=== PATIENT | female | born 1955 | race Caucasian/White ===

== ENCOUNTER → 2017-12-16 08:30 | Outpatient (CLI) | payer OTHER, SELFPAY ==
[2017-12-16 12:05] LABS: Absolute Lymphocyte Count 1.69 X10^3/ul (0.83-4.51); Basophil# 0.03 X10^3/uL; Basophil% 0.7 % (0-1); Eosinophil# 0.26 X10^3/uL; Eosinophils% 5.8 % (0-5); Hematocrit 40.3 % (37-47); Hemoglobin 13.1 g/dl (12.0-15.0); Lymphocyte # 1.69 X10^3/ul (4.0); Lymphocyte % 37.7 % (19-41); Mean Corp Hgb Conc 32.5 g/gl (32-36); Mean Corpuscular Hgb 30.8 pg (27.0-32.0); Mean Corpuscular Volume 94.8 fL (81-99); Mean Platelet Vol. 11.9 fl (6.2-12.0); Monocyte# 0.47 X10^3/uL; Monocyte% 10.5 % (0-10); Neutrophil # 2.03 X10^3/uL (2.7-7.7); Neutrophil % 45.3 % (47-70); Platelet Count 255 K/mm3 (150-450); RBC Distribution Width CV 12.6 % (11.6-14.6); RBC Distribution Width SD 42.5 fl (35.1-43.9); Red Blood Count 4.25 M/mm3 (4.2-5.4); White Blood Count 4.5 K/mm3 (4.4-11.0)
[2017-12-16 12:19] LABS: Vitamin D,25 Hydroxy 32.8 ng/mL (29.95-100.01)
[2017-12-16 12:21] LABS: ALB/GLOB Ratio 1.1 RATIO (0.9-2.4); AST(SGOT) 18 U/L (15-37); Alanine Aminotransfer ALT/SGPT 22 U/L (13-56); Albumin, Serum 3.7 g/dL (3.2-5.0); Alkaline Phosphatase 83 U/L (45-117); Anion Gap 7 (5-15); BUN 15 mg/dL (7-18); BUN/Creat Ratio 16.2 RATIO (10-20); Calcium,Total 8.6 mg/dL (8.5-10.1); Chloride 106 mmol/L (98-107); Cholesterol 277 mg/dL (200); Creatinine, Serum 0.93 mg/dL (0.55-1.02); EST Glomerular Filtration Rate 65 mL/min (>60); Est Glom Filt Rate - Afr Amer 79 mL/min (>60); Estradiol < 11.0 pg/mL; Free T3 2.7 pg/mL (2.18-3.98); Globulin 3.4 g/dL (2.2-4.2); Glucose 96 mg/dL (74-106); High Density Lipoprotein 58 mg/dL; Protein, Total 7.1 g/dL (6.4-8.2); Sodium Level 140 mmol/L (136-145); T4 Free Direct 1.13 ng/dL (0.76-1.46); Thyroid Stim Hormone (TSH) 0.53 uIU/mL (0.358-3.74); Triglycerides 140 mg/dL; Very Low Density Lipoprotein 28 mg/dL (5-40)
[2017-12-16 12:25] LABS: POSITIVE COUNT NO; POSITIVE DIFFERENTIAL NO; POSITIVE MORPHOLOGY NO
[2017-12-17 05:09] LABS: DHEA Sulfate 38.1 ug/dL (29.4-220.5)
[2017-12-17 13:20] LABS: Thyroid Peroxidase AB 54 IU/mL (0-34)
== END ==
PROVIDERS: Family Provider Family Medicine; PCP Family Medicine; Visit Provider Preventive Medicine Public Health & General Preventive Medicine
DX: E03.9 Hypothyroidism, unspecified (principal); E34.9 Endocrine disorder, unspecified; E55.9 Vitamin D deficiency, unspecified; N95.1 Menopausal and female climacteric states
CPT/HCPCS: 36415; 80053; 80061; 82306; 82533; 82627; 82670; 84144; 84403; 84439; 84443; 84481; 85025; 86376; 82626

== ENCOUNTER → 2017-12-16 09:12 | Outpatient (CLI) | payer OTHER, SELFPAY ==
--- NOTE | 2017-12-16 09:14 | RAD_ITS ---
STUDY: X-RAY - RIGHT SHOULDER REASON FOR EXAM: Female, 62 years old. Shoulder pain no trauma TECHNIQUE: 4 view(s) of the shoulder. COMPARISON: None. FINDINGS: Normal glenohumeral articulation. Normal acromioclavicular joint. Normal acromion. Normal humeral head and visualized proximal humerus. The soft tissue structures are unremarkable. Normal visualized pulmonary apex. RAD/Shoulder min 2 Views IMPRESSION: Normal x-ray examination of the shoulder. Electronically Signed: Jared Sylvester MD at 17:00 EDT , Service support ,
== END ==
PROVIDERS: Family Provider Family Medicine; PCP Family Medicine; Referring Provider Physician Assistant; Visit Provider Physician Assistant
DX: M25.511 Pain in right shoulder (principal)
CPT/HCPCS: 73030

== ENCOUNTER 2017-12-20 12:55 | Outpatient (RCR) | payer OTHER, SELFPAY | END 2017-12-20 19:00 | disposition home or self-care (01) | LOC: PT 12:55 | PROVIDERS: Family Provider Family Medicine; PCP Family Medicine; Referring Provider Physician Assistant; Visit Provider Physician Assistant | DX: M75.41 Impingement syndrome of right shoulder (principal) ==

== ENCOUNTER → 2019-04-12 | Outpatient (CLI) | payer OTHER, SELFPAY ==
[2019-04-12 12:18] LABS: Absolute Lymphocyte Count 1.97 X10^3/uL (0.83-4.51); Absolute Neutrophil Count 2.4 X10^3/uL (2.0-7.7); Basophil# 0.05 X10^3/uL; Eosinophil# 0.24 X10^3/uL; Eosinophils% 4.6 % (0-5); Hemoglobin 13.5 g/dL (12.0-15.0); Lymphocyte # 1.97 X10^3/ul (4.0); Lymphocyte % 37.7 % (19-41); Mean Corp Hgb Conc 32.1 g/dL (32-36); Mean Corpuscular Hgb 31.4 pg (27.0-32.0); Mean Corpuscular Volume 97.7 fL (81-99); Monocyte# 0.52 X10^3/uL; NRBC Flagged by Analyzer 0 % (0-5); Neutrophil # 2.42 X10^3/uL (2.7-7.7); Neutrophil % 46.3 % (47-70); Platelet Count 232 K/mm3 (150-450); RBC Distribution Width CV 12.4 % (11.6-14.6); RBC Distribution Width SD 44.4 fl (35.1-43.9); White Blood Count 5.2 K/mm3 (4.4-11.0)
[2019-04-12 12:53] LABS: ALB/GLOB Ratio 1.2 RATIO (0.9-2.4); AST(SGOT) 17 U/L (15-37); Alanine Aminotransfer ALT/SGPT 24 U/L (13-56); Albumin, Serum 3.9 g/dL (3.2-5.0); Alkaline Phosphatase 69 U/L (45-117); Anion Gap 4 (5-15); BUN 14 mg/dL (7-18); BUN/Creat Ratio 14.9 RATIO (10-20); Chloride 110 mmol/L (98-107); Cholesterol 268 mg/dL (200); Creatinine, Serum 0.94 mg/dL (0.55-1.02); EST Glomerular Filtration Rate 64 mL/min (>60); Est Glom Filt Rate - Afr Amer 77 mL/min (>60); Globulin 3.2 g/dL (2.2-4.2); Glucose 88 mg/dL (74-106); High Density Lipoprotein 83 mg/dL; Magnesium 2.1 mg/dL (1.6-2.6); Potassium 3.9 mmol/L (3.5-5.1); Protein, Total 7.1 g/dL (6.4-8.2); Sodium Level 142 mmol/L (136-145); T4 Free Direct 1.09 ng/dL (0.76-1.46); Thyroid Stim Hormone (TSH) 0.78 uIU/mL (0.358-3.74); Triglycerides 100 mg/dL; Very Low Density Lipoprotein 20 mg/dL (5-40)
[2019-04-16 20:42] LABS: Fats, Neutral Normal (.); Fats, Total Normal (.)
== END | disposition home or self-care (01) ==
PROVIDERS: PCP Family Medicine; Referring Provider Family Medicine; Visit Provider Family Medicine
DX: E03.9 Hypothyroidism, unspecified (principal); E78.00 Pure hypercholesterolemia, unspecified; R19.7 Diarrhea, unspecified
CPT/HCPCS: 36415; 80053; 80061; 82705; 83630; 83735; 84439; 84443; 85025; 87493; 87506

== ENCOUNTER 2019-04-24 10:09 | Inpatient (IN) | payer OTHER, SELFPAY ==
[2019-04-24] VITALS (12 sets, daily range): BP systolic 93–141; BP diastolic 53–69; PULSE 54–99; RESP 16–20; TEMP 36.6–36.8; O2SAT 96–99; BMI 28.6; BMI 28.5
--- NOTE | 2019-04-24 10:29 | EKG12_ITS ---
Test Reason : CP Blood Pressure : / mmHG Vent. Rate : 123 BPM Atrial Rate : 163 BPM P-R Int : 208 ms QRS Dur : 076 ms QT Int : 342 ms P-R-T Axes : 000 -35 -02 degrees QTc Int : 489 ms Sinus tachycardia with limited SVT Left axis deviation Abnormal ECG No previous ECGs available Confirmed by KENRICK VICTOR ([id number]), videotape editor RODY MCNEAL ([id number]) on 04/25/2019 2:30:06 PM Referred By: YODIT/STANTON Confirmed By:KENRICK VICTOR
--- NOTE | 2019-04-24 10:30 | RAD_ITS ---
STUDY: X-RAY CHEST REASON FOR EXAM: Female, 64 years old. AFIB TECHNIQUE: Single AP portable view of the chest. COMPARISON: None. FINDINGS: EKG electrodes are seen. The lungs are clear and expanded. There is no demonstrated pleural abnormality. Normal size heart. Normal mediastinum and isabell. Normal visualized pulmonary arteries. There is atherosclerotic calcification of the aortic arch with tortuosity. There are mild degenerative changes of the visualized thoracic spine. Normal visualized ribs, clavicles, and shoulders. There is no demonstrated abnormality of the visualized soft tissue structures of the upper abdomen. RAD/Chest 1 View (Portable) IMPRESSION: No acute abnormality is seen. Electronically Signed: Myron Ramachandran, at 10:56 EST , Service support ,
--- NOTE | 2019-04-24 10:36 | ED.RN ---
NO OLD EKG
[2019-04-24 10:42] LABS: Absolute Lymphocyte Count 2.27 X10^3/uL (0.83-4.51); Absolute Neutrophil Count 2.9 X10^3/uL (2.0-7.7); Basophil# 0.04 X10^3/uL; Basophil% 0.7 % (0-1); Eosinophil# 0.19 X10^3/uL; Eosinophils% 3.2 % (0-5); Hematocrit 39.9 % (37-47); Lymphocyte # 2.27 X10^3/ul (4.0); Lymphocyte % 37.8 % (19-41); Mean Corp Hgb Conc 32.6 g/dL (32-36); Mean Corpuscular Hgb 31.6 pg (27.0-32.0); Mean Corpuscular Volume 96.8 fL (81-99); Mean Platelet Vol. 11.5 fl (6.2-12.0); Monocyte# 0.55 X10^3/uL; Monocyte% 9.2 % (0-10); NRBC Flagged by Analyzer 0 % (0-5); Neutrophil # 2.94 X10^3/uL (2.7-7.7); Neutrophil % 48.9 % (47-70); Platelet Count 243 K/mm3 (150-450); RBC Distribution Width CV 12.4 % (11.6-14.6); RBC Distribution Width SD 44.4 fl (35.1-43.9); Red Blood Count 4.12 M/mm3 (4.2-5.4)
[2019-04-24 11:07] LABS: BNP,B-Type NATRIURETIC PEPTIDE 190.6 pg/mL (0-100)
[2019-04-24 11:10] LABS: Anion Gap 6 (5-15); BUN 14 mg/dL (7-18); BUN/Creat Ratio 14.6 RATIO (10-20); Calcium,Total 9.3 mg/dL (8.5-10.1); Chloride 109 mmol/L (98-107); Creatinine, Serum 0.96 mg/dL (0.55-1.02); EST Glomerular Filtration Rate 63 mL/min (>60); Est Glom Filt Rate - Afr Amer 76 mL/min (>60); Estimated Creatinine Clearance 57.57 ml/min; Glucose 96 mg/dL (74-106); Potassium 3.9 mmol/L (3.5-5.1); Sodium Level 143 mmol/L (136-145)
--- NOTE | 2019-04-24 11:21 | ED.RN ---
UP TO BR. TRANSPORTED VIA WC. PT REPORTS HEN STANDING TO [facility] DIDNT FEEL LIGHTHEADED BEFORE.
--- NOTE | 2019-04-24 11:36 | ED.DCSUM_ITS ---
History of Present Illness Chief Complaint: Chest Pain Detail of Chief Complaint: Palpitations, orthostatic symptoms and mild shortness of breath Informant: Patient Onset: Yesterday Context: Sudden Onset Timing: Intermittent Quality: Palpitations/rapid heartbeat with orthostatic symptoms and mild shortness o Location: Chest Current Severity: Presently not having symptoms Maximum Severity: Moderate Worsened by: Possibly exertion Relieved by: Nothing Associated Symptoms: Previously documented Narrative: Patient is a 64-year-old woman who presents with palpitations. These palpitations started yesterday. The palpitations are associated with lightheadedness. She went to the gym to workout. She states she did not exert herself. She did have episode of palpitation with lightheadedness and mild sweating and shortness of breath. She saw her primary care physician. She was sent to the ER because the EKG revealed bursts of rapid heartbeat followed by pause. Patient denies chest pain. She denies fever, chills night sweats. She had recent blood work including thyroid test that were negative. She denies weight gain or weight loss. She denies leg pain or swelling. She denies history of cardiac disease. Prior similar symptoms: No Recent Illness/Hospitalization: No - Blood work April 12, 2019 - Past Medical History (1) Hypothyroidism Status: Chronic (2) Hypercholesterolemia Status: Chronic Past Medical History - Allergies and Home Meds Allergies/Adverse Reactions: Allergies No Known Allergies Allergy (Verified 04/24/19 10:15) Primary Care Physician: Deon Mera MD [Primary Care Provider] - Prior records reviewed: Yes Lives: With Family Smoking Status: Never smoker Alcohol: None Drugs: None Review of Systems General: Denies: Chills, Fever, Sweats Eyes: Denies: Visual changes - bilaterally, Blurred Vision - bilaterally, Diplopia ENT: Denies: Bilateral ear pain, Rhinorrhea, Sore throat Cardiovascular: Reports: Palpitations, Heart racing Respiratory: Denies: Dyspnea, Cough, Dyspnea on exertion, Orthopnea, Paroxysmal nocturnal dyspnea Gastrointestinal: Denies: Abdominal pain, Nausea, Vomiting, Diarrhea, Melena, Hematochezia Genitourinary: Denies: Dysuria, Hematuria, Frequency Musculoskeletal: Denies: Myalgias, Arthralgias, Neck pain, Back pain, Swelling, Extremity Pain, -, - Skin: Denies: Rash, Wounds Neurological: Denies: Headache, Weakness, Numbness Endocrine: Denies: Polyuria, Polydipsia, Heat intolerance, Cold intolerance Hematologic: Denies: Easy bruising, Easy bleeding Physical Exam Vital Signs/Narrative: Vital Signs Temp Pulse Resp BP Pulse Ox 04/24/19 11:15 99 18 109/69 99 04/24/19 10:51 83 19 H 116/60 98 04/24/19 10:19 93 19 H 118/53 L 98 04/24/19 10:12 98.2 F 54 L 16 141/66 H 98 Inital Vital Signs reviewed: Yes General: Well nourished, Well developed, No Acute Distress Head: Normocephalic, Atraumatic Eyes: Perrl, EOMI ENT: Moist mucous membranes, No rhinorrhea Neck: Supple, Nontender Cardiovascular: No murmurs, Normal S1, Normal S2, Irregular, Tachycardia Respiratory: No distress, CTA bilaterally, Chest nontender Abdomen: Soft, Nontender, Nondistended, Normal bowel sounds, No masses Back: Nontender, Normal Inspection. Negative for: CVA tenderness Extremities: Nontender, No edema Skin: Normal color, No rash, No Trauma. Negative for: Cyanosis, Diaphoresis, Jaundice Neurological: Alert, Oriented x3, Cranial nerves II-XII grossly intact, Normal Strength, Normal Sensation Psychological: Normal affect, Normal Mood Diagnostic/Tx/Re-eval Chest X-Ray - ED: 1 View, Normal, Heart, Lungs, Mediastinum, Bony Structures, No Acute Disease Impressions Chest X-Ray 04/24/19 10:30 IMPRESSION: No acute abnormality is seen. Electronically Signed: Myron Ramachandran, at 10:56 EST , Service support , 04/24/19 10:30 Chest 1 View (Portable) [RAD] Stat Laboratory Results 04/24/19 04/24/19 04/24/19 10:17 10:17 10:17 WBC 6.0 RBC 4.12 L Hgb 13.0 Hct 39.9 MCV 96.8 MCH 31.6 MCHC 32.6 RDW Std Deviation 44.4 H RDW Coeff of Roseanna 12.4 Plt Count 243 MPV 11.5 Immature Gran % (Auto) 0.200 Neut % (Auto) 48.9 Lymph % (Auto) 37.8 [place] % (Auto) 9.2 Eos % (Auto) 3.2 Baso % (Auto) 0.7 Absolute Neuts (auto) 2.9 Absolute Lymphs (auto) 2.27 Nucleated RBC % 0 Sodium 143 Potassium 3.9 Chloride 109 H Carbon Dioxide 28.0 Anion Gap 6 BUN 14 Creatinine 0.96 Estim Creat Clear Calc 57.57 Est GFR (MDRD) Af Amer 76 Est GFR (MDRD) Non-Af 63 BUN/Creatinine Ratio 14.6 Glucose 96 Calcium 9.3 Troponin I < 0.015 B-Natriuretic Peptide 190.6 H Patient's work-up is essentially unremarkable. BNP is slightly elevated and nondiagnostic. - EKG Initial EKG Interpretation: Sinus Rhythm - This rhythm with premature ventricular beat and narrow complex tachycardia that is suggestive of atrial fibrillation. IN interval is 208 ms. QS duration 76 ms. QT duration 3 and 42 ms. [place] to the left. The EKG is not normal. - Medical Decision Making Presents with symptomatic palpitations. Monitor reveals bursts of narrow complex tachycardia. Uncertain whether this represents PAT versus paroxysmal atrial fibrillation. Based on 12-lead concern patient is having paroxysmal atrial fibrillation. Work-up was undertaken. BNP is slightly elevated. Chest x-ray reveals no evidence of heart failure. Dr. Ramiro Salas was paged since he is on-call for cardiology discussed case and recommendations. Case was discussed with Dr. Ramiro Salas. Patient will receive 5 mg of Lopressor IV push. Plan is to assign to PCU for further monitoring, echocardio gram and treat dysrhythmia. ED Disposition - Plan for ED Patient: Disposition: Acute Care [facility] Diagnosis: Narrow complex tachycardia, Near syncope Referrals: Deon Mera MD [Primary Care Provider] -
[2019-04-24] MEDS: Metoprolol Tartrate 5 MG/5 ML Vial IV (13:33)
--- NOTE | 2019-04-24 14:05 | ECHOD_ITS ---
Reason For Study: Arrhythmia Procedure This was a 2D Doppler, Color Flow transthoracic echocardiogram. The exam was of adequate technical quality. Exam performed portable in patient room. Left Ventricle Normal LV size. Left ventricular systolic function is normal. The estimated ejection fraction is 65 %. No evidence for diastolic dysfunction. No regional wall motion abnormalities noted. Right Ventricle Normal RV size. Normal systolic function. Atria The left atrium is mildly enlarged. Normal right atrium. No doppler evidence for ASD. Mitral Valve There is no mitral annular calcification. Normal mitral valve. Mild (1+) mitral valve insufficiency. Tricuspid Valve Normal tricuspid valve. Mild to moderate (1-2+) tricuspid valve insufficiency. Right ventricular systolic pressure estimated to be 24 mmHg. Aortic Valve Trisinus/trileaflet aortic valve. Normal aortic valve. Trivial aortic valve insufficiency. Pulmonic Valve The pulmonic valve is not well visualized. Great Vessels Normal aortic root. Pericardium/Pleural No pericardial effusion. MMode/2D Measurements & Calculations LVIDd: 4.1 cm IVSd: 1.1 cm Ao root diam: 2.9 cm LVIDs: 2.3 cm LVPWd: 1.2 cm RVDd: 3.7 cm FS: 43.8 % LAV(MOD-bp): 45.5 ml LVAd ap4: 26.3 cm2 SV(MOD-sp4): 50.4 ml LAV(MOD-bp) Indexed: 23.4 ml/m2 EDV(MOD-sp4): 75.6 ml LAV(MOD-sp2): 32.3 ml EDV(sp4-el): 78.1 ml LAV(MOD-sp4): 64.6 ml LVAs ap4: 13.8 cm2 ESV(MOD-sp4): 25.2 ml ESV(sp4-el): 24.1 ml EF(MOD-sp4): 66.7 % EF(sp4-el): 69.1 % SV(sp4-el): 54.0 ml LA A4 area: 20.5 cm2 LA dimension(2D): 4.0 cm RA A4 area: 17.2 cm2 Doppler Measurements & Calculations MV E max marco a: 66.9 cm/sec Lat Peak E' Marco A: 11.1 cm/sec Med Peak E' Marco A: 9.4 cm/sec MV A max marco a: 68.8 cm/sec E/E' lat: 6.0 E/E' med: 7.1 MV E/A: 0.97 Ao V2 max: 135.7 cm/sec AI max marco a: 365.4 cm/sec LV V1 max: 111.3 cm/sec Ao max P.4 mmHg AI max P.4 mmHg LV V1 max P.0 mmHg AI dec slope: 172.8 cm/sec2 AI P1/2t: 619.2 msec PA V2 max: 84.4 cm/sec TR max marco a: 227.5 cm/sec TR max P.8 mmHg Interpretation Summary Left ventricular systolic function is normal. The estimated ejection fraction is 65 %. The left atrium is mildly enlarged. Mild (1+) mitral valve insufficiency. Mild to moderate (1-2+) tricuspid valve insufficiency. Trivial aortic valve insufficiency. Right ventricular systolic pressure estimated to be 24 mmHg. No evidence for diastolic dysfunction. Ordering Physician: Suraj Crum Referring Physician: Deon Mera Performed By: Jerica Sotelo RDCS
[2019-04-24 14:45] LABS: Magnesium 2.1 mg/dL (1.6-2.6); Phosphorus 3.1 mg/dL (2.5-4.9)
--- NOTE | 2019-04-24 16:34 | PCM.HP.STD ---
History of Present Illness Date of Admission: 04/24/19 Chief Complaint: Palpitations The patient is a 64 year old F with a PMH as below who presents with palpitations. She says that she felt okay this morning and went to the gym and she was able to do some her of her normal exercises at her normal intensity and then after which she started feeling palpitations with lightheadedness and dizziness. She presented to the ER with SVT and a normal troponin, she did have a slightly elevated BNP however no other signs of heart failure. She states that she does have a history of hypothyroidism and is on Synthroid for that and was recently tested by her PCP and it was normal. When her rate that at times was up into the 200s slowed down it did appear that she was in sinus rhythm. She states that she is never had anything like this before. She states that she is also been having some diarrhea that is in a significant amount but is been going on for about a month and a half and she had seen her primary care for it and has had some stool test done that had all been negative. Past Medical History Past Medical History (Chronic Problems): Chronic Problems Hypothyroidism (Chronic) Hypercholesterolemia (Chronic) Allergies No Known Allergies Allergy (Verified 04/24/19 10:15) Home Medications: Ambulatory Orders Medication Instructions Recorded Ascorbic Acid [Vitamin C] 500 mg PO DAILY 04/24/19 Calcium Citrate/Vitamin D3 1 tab PO DAILY 04/24/19 [Calcium Citrate-Vit D3 Tablet] Cholecalciferol (Vitamin D3) 5,000 unit PO DAILY 04/24/19 [Vitamin D3] Levothyroxine [Synthroid] 112 mcg PO DAILY 04/24/19 [place] Oxalate 120 mg PO DAILY 04/24/19 Niacin (Inositol Niacinate) 500 mg PO DAILY 04/24/19 [Niacin 500 mg Capsule] Reacted Magniusium 470 mg PO DAILY 04/24/19 Reacted Selenium 200 mg PO DAILY 04/24/19 Turmeric 1,200 mg PO DAILY 04/24/19 Surgical History: Surgical History (Last Updated 06/20/17 @ 11:01 by Luis Phillips) Lilo flores M77.30 Lives: With Family Smoking Status: Never smoker Alcohol: None Drugs: None Review of Systems Constitutional: Denies: Chills, Fever, Weight Change HEENT: Denies: Head Aches, Sinus Congestion, Sinus Drainage Cardiovascular: Reports: Light Headedness, Palpitations. Denies: Chest Pain Respiratory: Denies: Cough, Shortness of breath at rest, Sputum production Gastrointestinal: Reports: Diarrhea. Denies: Abdominal Pain, Nausea, Vomiting Genitourinary: Denies: Dysuria Musculoskeletal: Denies: Joint Pain, Joint Tenderness Skin: Denies: Rash, Wounds Neurological: Denies: Numbness, Tingling, Focal weakness Psychiatric: Denies: Anxiety, Depression, Homicidal Ideations, Suicidal Ideations Hematologic/ Lymphatic: Denies: Easy Bruising, Easy Bleeding VTE Information - Inpt Only VTE Present on Admission: No Patient Problems: Active and Suspected Problems Narrow complex tachycardia (Acute) Near syncope (Acute) - Physical Exam Vitals/I&O's: Vital Signs Temp Pulse Resp BP Pulse Ox 98.1 F 98 16 111/55 L 98 04/24/19 15:36 04/24/19 15:36 04/24/19 15:36 04/24/19 15:36 04/24/19 15:36 Oxygen Delivery Method Room Air Weight: 181 lb 14.102 oz Body Mass Index (BMI) 28.5 General: Alert, Oriented x3, Cooperative, No apparent distress HEENT: Atraumatic, PERRLA, EOMI, Normocephalic Oral: Moist Mucosa Neck: Supple, No JVD Lungs: Clear to auscultation, Normal air movement, No rhonchi, No wheeze, No rales Cardiovascular: Regular rate, Regular Rhythm, Normal S1, Normal S2, No murmurs Abdomen: Soft, Non Tender, Non-Distended, No Hepato-splenomegaly Extremities: No edema, Capillary Refill Less than 3 Seconds Skin: No rashes, No breakdown Neurological: Neuro grossly intact, Sensory exam intact to light touch and pain Psych/Mental Status: Normal Affect, Appropriate Laboratory Results 04/24/19 10:17: WBC 6.0, RBC 4.12 L, Hgb 13.0, Hct 39.9, MCV 96.8, MCH 31.6, MCHC 32.6, RDW Std Deviation 44.4 H, RDW Coeff of [place]anna 12.4, Plt Count 243, MPV 11.5, Immature Gran % (Auto) 0.200, Neut % (Auto) 48.9, Lymph % (Auto) 37.8, [place] % (Auto) 9.2, Eos % (Auto) 3.2, Baso % (Auto) 0.7, Absolute Neuts (auto) 2.9, Absolute Lymphs (auto) 2.27, Nucleated RBC % 0 04/24/19 10:17: Sodium 143, Potassium 3.9, Chloride 109 H, Carbon Dioxide 28.0, Anion Gap 6, BUN 14, Creatinine 0.96, Estim Creat Clear Calc 57.57, Est GFR (MDRD) Af Amer 76, Est GFR (MDRD) Non-Af 63, BUN/Creatinine Ratio 14.6, Glucose 96, Calcium 9.3, Troponin I < 0.015 04/24/19 10:17: B-Natriuretic Peptide 190.6 H 04/24/19 10:17: Phosphorus 3.1, Magnesium 2.1 Current Medications Aspirin (Aspirin, Baby) 81 mg PO DAILY@0800 ANA Sodium Chloride () 250 mls @ 15 mls/hr IV .[id number] PRN PRN Reason: Saline Flush Sodium Chloride () 250 mls @ 15 mls/hr IV .[id number] PRN PRN Reason: Additional IVPB Infusion Metoprolol Tartrate (Lopressor (Beta Meg)) 25 mg PO BID ANA Sodium Chloride () 10 - 40 ml IV UD PRN PRN Reason: SALINE FLUSH Assessment/Plan All Active Problems Narrow complex tachycardia (Acute) Near syncope (Acute) 1. SVT -When she came in she had some heart rates in close to 200 and was given IV Lopressor, did bring her rate down into the 60s and 70s -We will obtain an echo and consult cardiology, cardiology did order a stress test -She is feeling better now that her heart rate is normal -Continue with niacin. -Magnesium and phosphorus were normal 2. Hypothyroidism -She did have her TSH checked on 04/12/2019 and it was within normal limits -He with her home Synthroid 3. She is on multiple supplements, 1 of them is lithium oxalate therefore we will check a lithium level to make sure that there is no lithium toxicity going on DVT: Ambulation Code Visit OBSV E&M: [id number] Initial observation care L2
--- NOTE | 2019-04-24 17:04 | CON.PCM_ITS ---
Problem List (1) Cardiac dysrhythmia Status: Acute (2) Near syncope Status: Acute (3) Hypercholesterolemia Status: Chronic (4) Hypothyroidism Status: Chronic Reason for Consult Date of Consultation: 04/24/19 History of Present Illness: The patient is a 64 year old white female with no past cardiovascular history who presents for evaluation of palpitations and concerns of near syncope. She states on and off for quite some time now she has noted episodes of palpitations. She believes they have been brief. They have not been associated with other symptoms or concerns. However she is noticed over the last 24 hours she has had increased episodes of palpitations. With some of these events she has felt as if she may lose consciousness but she has not. She denies any chest discomfort or difficulty breathing. There is been no orthopnea or PND or peripheral pitting edema. She states she has remained active. She actually went to the gym this morning. After her workout she states she felt again as if she may lose consciousness. She presented to her PCP. Her PCP obtained an ECG that demonstrated what appeared to be sinus rhythm with PACs and PVCs. She was referred to the [facility] emergency department for further evaluation. There she was noted on monitoring tech to have episodes of what was reported as a nonsustained irregular narrow complex tachycardia. She had a negative troponin I level. She was recommended for further inpatient evaluation care based upon her symptoms and her findings. On the PCU she has had episodes similar to previously noted as well as episodes of brief nonsustained irregular wide-complex tachycardia with differential diagnosis being aberrancy versus nons ustained VT. She states she has never undergone cardiovascular evaluation in the past. She states she is undergoing evaluation for her thyroid. She had thyroid laboratory studies recently which appear to be unremarkable. She was told she had a thyroid nodule and required a future thyroid ultrasound study. In the meantime she states she takes multiple [id number] supplements/vitamins. In the emergency department she was treated with 1 dose of IV metoprolol. She states that appeared to help slow her heart rate and some of the ectopy but it was not totally absent. [] Past Medical History Allergies/Adverse Reactions: Allergies No Known Allergies Allergy (Verified 04/24/19 10:15) Home Medications: Ambulatory Orders Medication Instructions Recorded Ascorbic Acid [Vitamin C] 500 mg PO DAILY 04/24/19 Calcium Citrate/Vitamin D3 1 tab PO DAILY 04/24/19 [Calcium Citrate-Vit D3 Tablet] Cholecalciferol (Vitamin D3) 5,000 unit PO DAILY 04/24/19 [Vitamin D3] Levothyroxine [Synthroid] 112 mcg PO DAILY 04/24/19 [place] Oxalate 120 mg PO DAILY 04/24/19 Niacin (Inositol Niacinate) 500 mg PO DAILY 04/24/19 [Niacin 500 mg Capsule] Reacted Magniusium 470 mg PO DAILY 04/24/19 Reacted Selenium 200 mg PO DAILY 04/24/19 Turmeric 1,200 mg PO DAILY 04/24/19 Past Medical History (Chronic Problems): Chronic Problems Hypothyroidism (Chronic) Hypercholesterolemia (Chronic) Lives: With Family Smoking Status: Never smoker Alcohol: None Drugs: None Review of Systems - Review of Systems General: Denies: Fever, Night Sweats, Fatigue Cardiovascular: Reports: Palpitations, Near Syncope. Denies: Chest Discomfort, Shortness of Breath, Orthopnea, PND, Peripheral Edema, Lightheadedness, Dizziness, Syncope Respiratory: Denies: Cough, Sputum Production, Hemoptysis Gastrointestinal: Denies: Hematemesis, Hematochezia, Melena Genitourinary: Denies: Dysuria, Hematuria Skin: Denies: Rash Subjectve: This is a 64-year-old otherwise healthy appearing white female appears to be resting comfortably in no acute distress. Objective: Vital Signs Temp Pulse Resp BP Pulse Ox 98.1 F 98 16 111/55 L 98 04/24/19 15:36 04/24/19 15:36 04/24/19 15:36 04/24/19 15:36 04/24/19 15:36 Oxygen Delivery Method Room Air Weight: 181 lb 14.102 oz Body Mass Index (BMI) 28.5 General: Awake, Alert, Oriented x 3, Cooperative, No Acute Distress HEENT: Atraumatic, Normocephalic, PERRL, EOMI, Sclera Non Icteric Oral: Moist Mucosa Neck: Supple, Good ROM, No JVD Lungs: Clear to auscultation Cardiovascular: Regular Rhythm, Premature Ectopic Beats, Normal S1, Normal S2 Vascular: No Carotid Bruits Abdomen: Bowel Sounds Present, Soft, Non Tender Extremities: No edema Neurological: No Focal Motor or Sensory Deficit Psych/Mental Status: Appropriate 04/24/19 10:17: WBC 6.0, RBC 4.12 L, Hgb 13.0, Hct 39.9, MCV 96.8, MCH 31.6, MC HC 32.6, Plt Count 243, MPV 11.5, Immature Gran % (Auto) 0.200, Neut % (Auto) 48.9, Lymph % (Auto) 37.8, [place] % (Auto) 9.2, Eos % (Auto) 3.2, Baso % (Auto) 0.7, Absolute Neuts (auto) 2.9, Nucleated RBC % 0 04/24/19 10:17: Sodium 143, Potassium 3.9, Chloride 109 H, Carbon Dioxide 28.0, Anion Gap 6, BUN 14, Creatinine 0.96, Est GFR (MDRD) Af Amer 76, Est GFR (MDRD) Non-Af 63, BUN/Creatinine Ratio 14.6, Glucose 96, Calcium 9.3, Troponin I < 0.015 04/24/19 10:17: B-Natriuretic Peptide 190.6 H 04/24/19 10:17: Phosphorus 3.1, Magnesium 2.1 Rhythm: As noted above EKG: Sinus rhythm; PACs; brief episodes appearing compatible with an ectopic atrial rhythm/tachycardia CXR: Portable chest x-ray: No acute cardiopulmonary disease appreciated: Please see official report Assessment/Plan 1. Cardiac dysrhythmia The patient has been found to have evidence of PACs, PVCs, findings appearing compatible with an ectopic atrial rhythm/tachycardia, and findings comparing compatible with nonsustained wide-complex tachycardia with a differential diagnosis of aberrancy versus nonsustained VT. Her initial troponin I level is negative. Her ECG is demonstrated no other acute changes. She is being further evaluated with a transthoracic echocardiogram. It would not be unreasonable to further evaluate her with an exercise tolerance test/imaging study to evaluate for any obvious evidence of coronary insufficiency/ischemia that would be contributing to any of her symptoms and/or findings. In the meantime she will continue to be monitored. She will continue medical management with beta-blockers as deemed appropriate. 2. Near syncope She has had episodes of near syncope. It appears some of her episodes, per her report, are thought to correlate with her tachydysrhythmia. Although she may have some episodes when she is not having her tachydysrhythmia. At the moment she will continue her evaluation care as noted above. 3. Hyperlipidemia Her lipids can be evaluated. She should consider medical therapy as deemed appropriate. 4. Thyroid disorder She is to undergo further evaluation and care of her thyroid disorder under the direction of her primary care physician. However, depending upon her clinical course this may need to be assessed further as thyroid condition may or may not be contributing to her cardiac dysrhythmia, etc. Comment: The patient's case was discussed and reviewed with the patient, her family members present, and Dr. Macdonald the [facility] emergency department staff. This note was generated using a voice recognition system and there may be incorrect words, spelling or punctuation that were not noted when reviewing the office note prior to saving.
[2019-04-24 17:44] LABS: Lithium < 0.20 mmol/L (0.60-1.20)
[2019-04-24] MEDS: Metoprolol Tartrate 25 MG Tablet PO (17:47)
[2019-04-24] MEDS: Aspirin 81 MG TAB.CHEW PO (17:49)
[2019-04-25] VITALS (14 sets, daily range): BP systolic 102–138; BP diastolic 51–80; PULSE 63–129; RESP 14–16; TEMP 36.6–36.8; O2SAT 94–100
[2019-04-25 05:39] LABS: Absolute Lymphocyte Count 2.24 X10^3/uL (0.83-4.51); Absolute Neutrophil Count 2.3 X10^3/uL (2.0-7.7); Basophil# 0.04 X10^3/uL; Basophil% 0.8 % (0-1); Eosinophil# 0.24 X10^3/uL; Eosinophils% 4.5 % (0-5); Hematocrit 38.9 % (37-47); Hemoglobin 12.6 g/dL (12.0-15.0); Lymphocyte # 2.24 X10^3/ul (4.0); Lymphocyte % 42.3 % (19-41); Mean Corp Hgb Conc 32.4 g/dL (32-36); Mean Corpuscular Hgb 31.2 pg (27.0-32.0); Mean Corpuscular Volume 96.3 fL (81-99); Mean Platelet Vol. 11.3 fl (6.2-12.0); Monocyte# 0.53 X10^3/uL; NRBC Flagged by Analyzer 0 % (0-5); Neutrophil # 2.25 X10^3/uL (2.7-7.7); Neutrophil % 42.4 % (47-70); Platelet Count 235 K/mm3 (150-450); RBC Distribution Width CV 12.4 % (11.6-14.6); RBC Distribution Width SD 44.2 fl (35.1-43.9); Red Blood Count 4.04 M/mm3 (4.2-5.4); White Blood Count 5.3 K/mm3 (4.4-11.0)
[2019-04-25 05:50] LABS: Anion Gap 3 (5-15); BUN 18 mg/dL (7-18); BUN/Creat Ratio 18.1 RATIO (10-20); Calcium,Total 8.5 mg/dL (8.5-10.1); Chloride 112 mmol/L (98-107); Creatinine, Serum 0.99 mg/dL (0.55-1.02); EST Glomerular Filtration Rate 60 mL/min (>60); Est Glom Filt Rate - Afr Amer 72 mL/min (>60); Estimated Creatinine Clearance 55.83 ml/min; Glucose 93 mg/dL (74-106); Potassium 4.2 mmol/L (3.5-5.1); Sodium Level 145 mmol/L (136-145)
[2019-04-25] MEDS: Aspirin 81 MG TAB.CHEW PO (06:35)
[2019-04-25] MEDS: Levothyroxine 112 MCG Tablet PO (06:35)
[2019-04-25] MEDS: Metoprolol Tartrate 25 MG Tablet PO (10:23)
--- NOTE | 2019-04-25 12:25 | STRESSREP_ITS ---
Stress Test Report Date: 04-25-2019 Procedure: Exercise tolerance test/imaging study Indications: Cardiac dysrhythmia; near syncope Consent: Per the patient Procedure: The patient exercised on a Miguel protocol for 7 minutes completing Stage II and 1 minute of Stage III achieving a peak heart rate of 155 bpm (99 % predicted maximal heart rate) with a peak blood pressure 142/40 mmHg and a peak MET capacity of 8 METs. The baseline ECG demonstrated normal sinus rhythm. The peak exercise ECG demonstrated Mattix/motion artifact with no obvious ECG changes. There was notation of intermittent episodes of an irregular narrow complex tachycardia during exercise and recovery appearing compatible with an ectopic atrial tachycardia and/or paroxysmal atrial fibrillation as well as intermittent episodes of PVCs during exercise; there was an isolated ventricular couplet/aberrant complex during exercise. The functional capacity was considered average. There was no complaint of chest discomfort during exercise or recovery. The examination was discontinued secondary to leg discomfort. Impression: 1. Technically adequate (percent predicted maximal heart rate greater than 85%) exercise tolerance test 2. Peak exercise ECG with somatic/motion artifact with no obvious ECG changes 3. There was notation of intermittent episodes of an irregular narrow complex tachycardia during exercise and recovery appearing compatible with an ectopic atrial tachycardia and/or paroxysmal atrial fibrillation as well as intermittent episodes of PVCs during exercise; there was an isolated ventricular couplet/aberrant complex during exercise. 4. Nuclear images pending Myocardial perfusion imaging study: Technique: The patient was injected with 11.8 mCi of technetium 99m Cardiolite and subsequently rest SPECT Cardiolite nuclear imaging was obtained in the horizontal long, vertical long, and short axis views. The patient exercised on a Miguel protocol for 7 minutes completing Stage II and 1 minute of Stage III achieving a peak heart rate of 155 bpm (99 % predicted maximal heart rate) with a peak blood pressure 142/40 mmHg and a peak MET capacity of 8 METs. The patient was injected with 34.3 mCi of technetium 99m Cardiolite and subsequently stress SPECT Cardiolite nuclear imaging was obtained in the horizontal long, vertical long, and short axis views. A gated Cardiolite study at peak stress was obtained. Interpretation: Rest and stress SPECT Cardiolite nuclear imaging status post realignment and normalization demonstrates appearance of relative uniform tracer uptake and myocardial perfusion appearing within normal limits. There is end systolic thickening and brightening. The gated Cardiolite study demonstrates myocardial thickening and inward wall motion. The reported LVEF is 75 %. Impression: 1. Rest and stress SPECT Cardiolite nuclear imaging demonstrate relative uniform tracer uptake and myocardial perfusion appearing within normal limits. 2. The gated Cardiolite study reports an LVEF of 75 %. This note was generated with [employer] dictation software. It may contain incorrect words, spelling, and punctuation that were not noted in checking the note before signing.
[2019-04-25] MEDS: Flecainide 100 MG Tablet PO ×2 (14:07→21:49)
--- NOTE | 2019-04-25 14:17 | CASEMGMT ---
Patient has a Healthcare Power of Delimer and a Healthcare Living Will. She is aware they are not on file and to bring in a copy when able. Modesta CARRANZA MSW
--- NOTE | 2019-04-25 15:30 | CASEMGMT ---
RN [employer] CM to room to meet with patient for initial transition planning/care coordination assessment. GLENN BARRETT introduced self and role at [facility]. Pt voices understanding and consents to assessment at this time. Pt resting in bed in no distress at this time. Pt is A/O at this time and answers all questions appropriately. Care providers, pharmacy, and demographics verified/updated at this time. PCP: Dr Deon Mera Specialists: Dr Salas--cardiology Preferred Pharmacy: [facility] Retail Insurance: [employer] Prescription Benefit: Yes Living Will/HPOA: Has both LW and Healthcare POA, who is her , Rodo. States would like to talk with SW to complete updated POA paperwork. Order placed for SW consult. LNOK: , Rodo Dugan Living Arrangements: Lives with her , Rodo. Has daughter that lives with them. Independent w/ADL's and IADL's. DME: Denies using any DME and denies needs. HHC/SNF: No history of either and denies needs. Pt wishes to return home and states has no concerns with going home at time of discharge. CM to follow for any discharge planning/needs. Pt voices no further concerns/needs at this time. Advised pt to ask for CM if any further questions/concerns/needs arise. Voices understanding. PLAN: Home w/family support. SW consult to complete updated AD. Radha NINA RN, CM
--- NOTE | 2019-04-25 16:58 | PN_ITS ---
Patient Problems: Active and Suspected Problems Narrow complex tachycardia (Acute) Near syncope (Acute) Cardiac dysrhythmia (Acute) Subjective: Patient was seen and examined today today, I reviewed her medication list- patient is taking quite a few vitamins and supplements, she obtains these from a doctor in [facility]-she states his doctor also gives chelation treatments to other patients. I advised her to stop many of her food supplements, I advised her against considering chelation. I talked with cardiology extensively today, it was decided that they would try the patient on flecainide and adjust her beta-meg. Patient was made a full admission today. She will need to stay in the hospital for the next 48 hours to assess the effect of the flecainide and to watch for any side effects. Patient continues to have short runs of what appears to be paroxysmal atrial tachycardia or A. fib, her stress test and echocardiogram today were unremarkable. - Physical Exam Vitals/I&O's: Vital Signs Temp Pulse Resp BP Pulse Ox 98.1 F 84 16 135/65 H 96 04/25/19 16:17 04/25/19 16:17 04/25/19 16:17 04/25/19 16:17 04/25/19 16:17 Oxygen Delivery Method Room Air Weight: 82.5 kg Body Mass Index (BMI) 28.5 Intake and Output for Last 24 Hours 04/23/19 04/24/19 04/25/19 23:59 23:59 23:59 Intake Total 840 / 840 Balance 840 / 840 General: Alert, Oriented x3, Cooperative, No apparent distress, Well developed HEENT: Atraumatic, PERRLA, EOMI, Normocephalic Oral: Moist Mucosa Neck: Supple, No JVD, Trachea Midline, Thyroid Normal Size and Texture Lungs: Clear to auscultation, Normal air movement, No rhonchi, No wheeze, No rales Cardiovascular: Regular rate, Regular Rhythm, Normal S1, Normal S2, No murmurs, No Ectopic Activity, PMI Normal, No rub noted Abdomen: Bowel Sounds Present, Soft, Non Tender, Non-Distended Extremities: No clubbing, No cyanosis, No edema, Capillary Refill Less than 3 Seconds Skin: No rashes, No breakdown Musculoskeletal: No Tenderness to Palpation of Joints or Extremities Neurological: Cranial nerves II-XII grossly intact, Neuro grossly intact, Sensory exam intact to light touch and pain, Coordination normal Psych/Mental Status: Normal Affect, Appropriate, Alert and oriented to time, place, person, mood and affect Laboratory Results 04/24/19 16:46: Heeia < 0.20 L 04/25/19 05:15: Sodium 145, Potassium 4.2, Chloride 112 H, Carbon Dioxide 30.0, Anion Gap 3 L, BUN 18, Creatinine 0.99, Estim Creat Clear Calc 55.83, Est GFR (MDRD) Af Amer 72, Est GFR (MDRD) Non-Af 60, BUN/Creatinine Ratio 18.1, Glucose 93, Calcium 8.5 04/25/19 05:15: WBC 5.3, RBC 4.04 L, Hgb 12.6, Hct 38.9, MCV 96.3, MCH 31.2, MCHC 32.4, RDW Std Deviation 44.2 H, RDW Coeff of Roseanna 12.4, Plt Count 235, MPV 11.3, Immature Gran % (Auto) 0.000, Neut % (Auto) 42.4 L, Lymph % (Auto) 42.3 H, [place] % (Auto) 10.0, Eos % (Auto) 4.5, Baso % (Auto) 0.8, Absolute Neuts (auto) 2.3, Absolute Lymphs (auto) 2.24, Nucleated RBC % 0 Current Medications Aspirin (Aspirin, Baby) 81 mg PO DAILY@0800 [facility] Last Admin: 04/25/19 06:35 Dose: 81 mg Documented by: Flecainide Acetate (Tambocor) 100 mg PO BID [facility] Last Admin: 04/25/19 14:07 Dose: 100 mg Documented by: Sodium Chloride () 250 mls @ 15 mls/hr IV .[id number] PRN PRN Reason: Saline Flush Sodium Chloride () 250 mls @ 15 mls/hr IV .[id number] PRN PRN Reason: Additional IVPB Infusion Levothyroxine Sodium (Synthroid) 112 mcg PO DAILY@0600 [facility] Last Admin: 04/25/19 06:35 Dose: 112 mcg Documented by: Metoprolol Tartrate (Lopressor (Beta Meg)) 50 mg PO BID [facility] Sodium Chloride () 10 - 40 ml IV UD PRN PRN Reason: SALINE FLUSH Medical Necessity - Tobacco Use Smoking Status: Never smoker Assessment/Plan All Active Problems Narrow complex tachycardia (Acute) Near syncope (Acute) Cardiac dysrhythmia (Acute) #1 paroxysmal atrial tachycardia-patient is now on flecainide and a beta- meg, she will be monitored by cardiology #2 hypothyroidism Code Visit Inpatient E&M: 06273 Init Hosp L3
--- NOTE | 2019-04-25 18:11 | PN.CARD_ITS ---
Subjectve: The patient is awake and alert. She is undergone noninvasive evaluation. She states overall she feels better this afternoon/evening than she did in the morning with respect to her palpitations and her sensation of near syncope. Objective: Vital Signs Temp Pulse Resp BP Pulse Ox 98.1 F 84 16 135/65 H 96 04/25/19 16:17 04/25/19 16:17 04/25/19 16:17 04/25/19 16:17 04/25/19 16:17 Oxygen Delivery Method Room Air Weight: 181 lb 14.102 oz Body Mass Index (BMI) 28.5 Intake and Output for Last 24 Hours 04/23/19 04/24/19 04/25/19 23:59 23:59 23:59 Intake Total 840 / 840 Balance 840 / 840 General: Awake, Alert, Oriented x 3, Cooperative, No Acute Distress HEENT: Atraumatic, Normocephalic, PERRL, EOMI, Sclera Non Icteric Oral: Moist Mucosa Neck: Supple, Good ROM, No JVD Lungs: Clear to auscultation Cardiovascular: Regular Rhythm, Premature Ectopic Beats, Normal S1, Normal S2 Abdomen: Bowel Sounds Present, Soft, Non Tender Extremities: No edema Neurological: No Focal Motor or Sensory Deficit Psych/Mental Status: Appropriate 04/25/19 05:15: Sodium 145, Potassium 4.2, Chloride 112 H, Carbon Dioxide 30.0, Anion Gap 3 L, BUN 18, Creatinine 0.99, Est GFR (MDRD) Af Amer 72, Est GFR (MDRD) Non-Af 60, BUN/Creatinine Ratio 18.1, Glucose 93, Calcium 8.5 04/25/19 05:15: WBC 5.3, RBC 4.04 L, Hgb 12.6, Hct 38.9, MCV 96.3, MCH 31.2, MCHC 32.4, Plt Count 235, MPV 11.3, Immature Gran % (Auto) 0.000, Neut % (Auto) 42.4 L, Lymph % (Auto) 42.3 H, [place] % (Auto) 10.0, Eos % (Auto) 4.5, Baso % (Auto) 0.8, Absolute Neuts (auto) 2.3, Nucleated RBC % 0 Rhythm: Sinus rhythm; episodes of ectopic atrial tachycardia/paroxysmal atrial fibrillation without and with aberrancy Echocardiogram: Interpretation Summary Left ventricular systolic function is normal. The estimated ejection fraction is 65 %. The left atrium is mildly enlarged. Mild (1+) mitral valve insufficiency. Mild to moderate (1-2+) tricuspid valve insufficiency. Trivial aortic valve insufficiency. Right ventricular systolic pressure estimated to be 24 mmHg. No evidence for diastolic dysfunction. Stress Test: Stress Test Report Date: 04-25-2019 Procedure: Exercise tolerance test/imaging study Indications: Cardiac dysrhythmia; near syncope Consent: Per the patient Procedure: The patient exercised on a Miguel protocol for 7 minutes completing Stage II and 1 minute of Stage III achieving a peak heart rate of 155 bpm (99 % predicted maximal heart rate) with a peak blood pressure 142/40 mmHg and a peak MET capacity of 8 METs. The baseline ECG demonstrated normal sinus rhythm. The peak exercise ECG demonstrated Mattix/motion artifact with no obvious ECG changes. There was notation of intermittent episodes of an irregular narrow complex tachycardia during exercise and recovery appearing compatible with an ectopic atrial tachycardia and/or paroxysmal atrial fibrillation as well as intermittent episodes of PVCs during exercise; there was an isolated ventricular couplet/aberrant complex during exercise. The functional capacity was considered average. There was no complaint of chest discomfort during exercise or recovery. The examination was discontinued secondary to leg discomfort. Impression: 1. Technically adequate (percent predicted maximal heart rate greater than 85%) exercise tolerance test 2. Peak exercise ECG with somatic/motion artifact with no obvious ECG changes 3. There was notation of intermittent episodes of an irregular narrow complex tachycardia during exercise and recovery appearing compatible with an ectopic atrial tachycardia and/or paroxysmal atrial fibrillation as well as intermittent episodes of PVCs during exercise; there was an isolated ventricular couplet/aberrant complex during exercise. 4. Nuclear images pending Myocardial perfusion imaging study: Technique: The patient was injected with 11.8 mCi of technetium 99m Cardiolite and subsequently rest SPECT Cardiolite nuclear imaging was obtained in the horizontal long, vertical long, and short axis views. The patient exercised on a Miguel protocol for 7 minutes completing Stage II and 1 minute of Stage III achieving a peak heart rate of 155 bpm (99 % predicted maximal heart rate) with a peak blood pressure 142/40 mmHg and a peak MET capacity of 8 METs. The patient was injected with 34.3 mCi of technetium 99m Cardiolite and subsequently stress SPECT Cardiolite nuclear imaging was obtained in the horizontal long, vertical long, and short axis views. A gated Cardiolite study at peak stress was obtained. Interpretation: Rest and stress SPECT Cardiolite nuclear imaging status post realignment and normalization demonstrates appearance of relative uniform tracer uptake and myocardial perfusion appearing within normal limits. There is end systolic thickening and brightening. The gated Cardiolite study demonstrates myocardial thickening and inward wall motion. The reported LVEF is 75 %. Impression: 1. Rest and stress SPECT Cardiolite nuclear imaging demonstrate relative uniform tracer uptake and myocardial perfusion appearing within normal limits. 2. The gated Cardiolite study reports an LVEF of 75 %. Medical Necessity - Tobacco Use Smoking Status: Never smoker Assessment/Plan 1. Cardiac dysrhythmia The patient has been found to have evidence of PACs, PVCs, findings appearing compatible with an ectopic atrial rhythm/tachycardia?paroxysmal atrial fibrillation and findings comparing compatible with nonsustained wide-complex tachycardia with a differential diagnosis of aberrancy versus nonsustained VT appearing, with respect to the underlying irregular rhythm, compatible with aberrancy. She has undergone additional noninvasive testing with transthoracic echocardiogram and an exercise tolerance test/imaging study. She is going to continue rate control therapy with advancement of her medications as tolerated. There is been consideration as to continuing rate control therapy alone and monitoring response versus the addition of antiarrhythmic therapy. Based upon her ongoing frequent episodes it has been elected to proceed with additional antiarrhythmic therapy with flecainide. She will be placed on this and monitored in the hospital for any adverse events. Depending upon her ongoing course she may need to be considered for anti- coagulant therapy as well. 2. Near syncope She has had episodes of near syncope. It appears some of her episodes, per her report, are thought to correlate with her tachydysrhythmia. Although she may have some episodes when she is not having her tachydysrhythmia. At the moment she will continue her evaluation care as noted above. 3. Hyperlipidemia Her lipids can be evaluated. She should consider medical therapy as deemed appropriate. 4. Thyroid disorder She is to undergo further evaluation and care of her thyroid disorder under the direction of her primary care physician. However, depending upon her clinical course this may need to be assessed further as thyroid condition may or may not be contributing to her cardiac dysrhythmia, etc. Comment: The patient's case was discussed and reviewed with the patient, her family members present, and Dr. Santiago. This note was generated using a voice recognition system and there may be incorrect words, spelling or punctuation that were not noted when reviewing the office note prior to saving.
[2019-04-25] MEDS: Metoprolol Tartrate 50 MG Tablet PO (21:49)
[2019-04-25] MEDS: Ibuprofen 400 MG Tablet PO (22:22)
[2019-04-26] VITALS (11 sets, daily range): BP systolic 105–118; BP diastolic 65–70; PULSE 56–85; RESP 14–16; TEMP 36.3–36.6; O2SAT 95–100
[2019-04-26] MEDS: Levothyroxine 112 MCG Tablet PO (03:52)
--- NOTE | 2019-04-26 05:55 | EKG12_ITS ---
Test Reason : AM EKG Blood Pressure : / mmHG Vent. Rate : 076 BPM Atrial Rate : 076 BPM P-R Int : 244 ms QRS Dur : 100 ms QT Int : 416 ms P-R-T Axes : 059 -33 029 degrees QTc Int : 468 ms Sinus rhythm with 1st degree A-V block Left axis deviation Abnormal ECG When compared with ECG of 24-APR-2019 10:18, MO interval has increased Vent. rate has decreased BY 47 BPM Confirmed by NAM TORRES, DEVORAH ([id number]), index editor TIAN DENNIS ([id number]) on 04/30/2019 3:59:33 PM Referred By: BERNIE Confirmed By:DEVORAH BROWNING MD
[2019-04-26] MEDS: Ibuprofen 400 MG Tablet PO (07:20)
[2019-04-26] MEDS: Flecainide 100 MG Tablet PO ×2 (09:10→21:06)
[2019-04-26] MEDS: Metoprolol Tartrate 50 MG Tablet PO ×2 (09:10→21:06)
[2019-04-26] MEDS: Aspirin 81 MG TAB.CHEW PO (09:10)
--- NOTE | 2019-04-26 09:45 | PCM.PN.CARD ---
Subjectve: The patient states she feels better today. She has not noted her palpitations. She has not had any recurrent dizziness/lightheadedness/near syncope. Objective: Vital Signs Temp Pulse Resp BP Pulse Ox 97.6 F L 76 16 109/65 100 04/26/19 09:05 04/26/19 09:10 04/26/19 09:05 04/26/19 09:05 04/26/19 09:05 Oxygen Delivery Method Room Air Weight: 181 lb 14.102 oz Body Mass Index (BMI) 28.5 Intake and Output for Last 24 Hours 04/24/19 04/25/19 04/26/19 23:59 23:59 23:59 Intake Total 1320 / 1520 420 / 420 Balance 1320 / 1520 420 / 420 General: Awake, Alert, Oriented x 3, Cooperative, No Acute Distress HEENT: Atraumatic, Normocephalic, PERRL, EOMI, Sclera Non Icteric Oral: Moist Mucosa Neck: Supple, Good ROM, No JVD Lungs: Clear to auscultation Cardiovascular: Regular Rhythm, Normal S1, Normal S2 Abdomen: Bowel Sounds Present, Soft, Non Tender Extremities: No edema Neurological: No Focal Motor or Sensory Deficit Psych/Mental Status: Appropriate Rhythm: Sinus rhythm EKG: Sinus rhythm; first-degree AV block; left axis deviation; no acute ECG changes Medical Necessity - Tobacco Use Smoking Status: Never smoker Assessment/Plan 1. Cardiac dysrhythmia The patient has been found to have evidence of PACs, PVCs, findings appearing compatible with an ectopic atrial rhythm/tachycardia?paroxysmal atrial fibrillation and findings comparing compatible with nonsustained wide-complex tachycardia with a differential diagnosis of aberrancy versus nonsustained VT appearing, with respect to the underlying irregular rhythm, compatible with aberrancy. She has undergone additional noninvasive testing with transthoracic echocardiogram and an exercise tolerance test/imaging study. He has been placed on medical therapy with beta-blockers and antiarrhythmic therapy with flecainide. Thus far since altering her medications yesterday afternoon she has not had any recurrent symptoms nor has she had any recurrent cardiac dysrhythmias. At the moment she will continue her current medical therapy today. Her rate and rhythm will be followed. She will have follow-up ECG. She has a [id number] score of 1 for an intermediate risk. At the present time she is continuing antiplatelet therapy. If she has recurrence of her atrial dysrhythmias then she may need to be considered to advancement to anticoagulant therapy. 2. Near syncope She has had episodes of near syncope. It appears some of her episodes, per her report, are thought to correlate with her tachydysrhythmia. She does feel better as her rate and rhythm have been calmer. At the moment she will continue her evaluation care as noted above. 3. Hyperlipidemia Her lipids can be evaluated. She should consider medical therapy as deemed appropriate. 4. Thyroid disorder She is to undergo further evaluation and care of her thyroid disorder under the direction of her primary care physician. However, depending upon her clinical course this may need to be assessed further as thyroid condition may or may not be contributing to her cardiac dysrhythmia, etc. Comment: The patient's case was discussed and reviewed with the patient and Dr. Santiago. This note was generated using a voice recognition system and there may be incorrect words, spelling or punctuation that were not noted when reviewing the office note prior to saving.
--- NOTE | 2019-04-26 10:55 | PCM.PROGNOTE ---
Patient Problems: Active and Suspected Problems Narrow complex tachycardia (Acute) Near syncope (Acute) Cardiac dysrhythmia (Acute) Subjective: Patient was seen and examined today, she has had no significant cardiac arrhythmias since yesterday. Patient does not complain of any palpitations chest discomfort or shortness of breath. I talked briefly with cardiology about her care today - Physical Exam Vitals/I&O's: Vital Signs Temp Pulse Resp BP Pulse Ox 97.6 F L 76 16 109/65 100 04/26/19 09:05 04/26/19 09:10 04/26/19 09:05 04/26/19 09:05 04/26/19 09:05 Oxygen Delivery Method Room Air Weight: 82.5 kg Body Mass Index (BMI) 28.5 Intake and Output for Last 24 Hours 04/24/19 04/25/19 04/26/19 23:59 23:59 23:59 Intake Total 1320 / 1520 420 / 420 Balance 1320 / 1520 420 / 420 General: Alert, Oriented x3, Cooperative, No apparent distress, Well developed HEENT: Atraumatic, PERRLA, EOMI, Normocephalic Oral: Moist Mucosa Neck: Supple, No JVD, Trachea Midline, Thyroid Normal Size and Texture Lungs: Clear to auscultation, Normal air movement, No rhonchi, No wheeze, No rales Cardiovascular: Regular rate, Regular Rhythm, Normal S1, Normal S2, No murmurs, PMI Normal, No rub noted, No Gallop Abdomen: Bowel Sounds Present, Soft, Non Tender, Non-Distended Extremities: No clubbing, No cyanosis, No edema, Capillary Refill Less than 3 Seconds Skin: No rashes, No breakdown Musculoskeletal: No Tenderness to Palpation of Joints or Extremities Neurological: Cranial nerves II-XII grossly intact, Neuro grossly intact, Muscle tone normal, Sensory exam intact to light touch and pain, Coordination normal Psych/Mental Status: Normal Affect, Appropriate, Alert and oriented to time, place, person, mood and affect Current Medications Aspirin (Aspirin, Baby) 81 mg PO DAILY@0800 [facility] Last Admin: 04/26/19 09:10 Dose: 81 mg Documented by: Flecainide Acetate (Tambocor) 100 mg PO BID [facility] Last Admin: 04/26/19 09:10 Dose: 100 mg Documented by: Sodium Chloride () 250 mls @ 15 mls/hr IV .[id number] PRN PRN Reason: Saline Flush Sodium Chloride () 250 mls @ 15 mls/hr IV .[id number] PRN PRN Reason: Additional IVPB Infusion Ibuprofen (Motrin) 400 mg PO Q6H PRN PRN PRN Reason: pain 1-11/30 Last Admin: 04/26/19 07:20 Dose: 400 mg Documented by: Levothyroxine Sodium (Synthroid) 112 mcg PO DAILY@0600 [facility] Last Admin: 04/26/19 03:52 Dose: 112 mcg Documented by: Metoprolol Tartrate (Lopressor (Beta Meg)) 50 mg PO BID [facility] Last Admin: 04/26/19 09:10 Dose: 50 mg Documented by: Sodium Chloride () 10 - 40 ml IV UD PRN PRN Reason: SALINE FLUSH Medical Necessity - Tobacco Use Smoking Status: Never smoker Assessment/Plan All Active Problems Narrow complex tachycardia (Acute) Near syncope (Acute) Cardiac dysrhythmia (Acute) #1 paroxysmal atrial tachycardia-patient is now on flecainide and a beta-meg, she will be monitored by cardiology, if patient remains stable until tomorrow, she may be discharged tomorrow. #2 hypothyroidism Code Visit Inpatient E&M: 51943 Subs Hosp L2
--- NOTE | 2019-04-26 11:10 | CASEMGMT ---
Social work Updated and completed Advanced Directive with pt. Pt naming , Rodo Dugan as health care POA. Copies placed in chart. Elise Nicolas, social work application internship Modesta CARRANZA MSW
[2019-04-27 03:00] VITALS: BP 113/66; PULSE 68; PULSE 74; RESP 16; TEMP 36.7; O2SAT 95
--- NOTE | 2019-04-27 05:55 | EKG12_ITS ---
Test Reason : AM EKG Blood Pressure : / mmHG Vent. Rate : 051 BPM Atrial Rate : 051 BPM P-R Int : 210 ms QRS Dur : 090 ms QT Int : 454 ms P-R-T Axes : 065 -36 017 degrees QTc Int : 418 ms Sinus bradycardia with 1st degree A-V block with Premature atrial complexes Left axis deviation Abnormal ECG Confirmed by TEMO TORRES, SOPHIA ([id number]), film and video editor SANDHYA MIRZA ([id number]) on 05/02/2019 10:08:37 AM Referred By: ZOLTAN Confirmed By:SOPHIA PLASCENCIA MD
[2019-04-27] MEDS: Levothyroxine 112 MCG Tablet PO (05:56)
[2019-04-27 07:25] VITALS: PULSE 73
[2019-04-27 07:52] VITALS: BP 119/77; PULSE 72; RESP 16; TEMP 36.7; O2SAT 98
[2019-04-27 08:02] VITALS: BP 119/77; PULSE 72
[2019-04-27] MEDS: Metoprolol Tartrate 50 MG Tablet PO (08:02)
[2019-04-27] MEDS: Aspirin 81 MG TAB.CHEW PO (08:02)
[2019-04-27] MEDS: Flecainide 100 MG Tablet PO (08:03)
--- NOTE | 2019-04-27 08:39 | PCM.PN.CARD ---
Subjectve: The patient is awake and alert. She has been up and ambulating. She has no new acute complaints. Objective: Vital Signs Temp Pulse Resp BP Pulse Ox 98.1 F 72 16 119/77 98 04/27/19 07:52 04/27/19 08:02 04/27/19 07:52 04/27/19 08:02 04/27/19 07:52 Oxygen Delivery Method Room Air Weight: 181 lb 14.102 oz Body Mass Index (BMI) 28.5 Intake and Output for Last 24 Hours 04/25/19 04/26/19 04/27/19 23:59 23:59 23:59 Intake Total 1320 / 1520 1979 240 / 240 Balance 1320 / 1520 1979 240 / 240 General: Awake, Alert, Oriented x 3, Cooperative, No Acute Distress HEENT: Atraumatic, Normocephalic, PERRL, EOMI, Sclera Non Icteric Oral: Moist Mucosa Neck: Supple, Good ROM, No JVD Lungs: Clear to auscultation Cardiovascular: Regular Rhythm, Normal S1, Normal S2 Abdomen: Bowel Sounds Present, Soft, Non Tender Extremities: No edema Neurological: No Focal Motor or Sensory Deficit Psych/Mental Status: Appropriate Rhythm: EKG: ECHO: Stress Test: Cardiac Cath: PCI: CT Surgery: Holter monitor: EPS: PPM: CXR: Chest CT Scan: Medical Necessity - Tobacco Use Smoking Status: Never smoker Assessment/Plan 1. Cardiac dysrhythmia The patient has been found to have evidence of PACs, PVCs, findings appearing compatible with an ectopic atrial rhythm/tachycardia?paroxysmal atrial fibrillation and findings comparing compatible with nonsustained wide-complex tachycardia with a differential diagnosis of aberrancy versus nonsustained VT appearing, with respect to the underlying irregular rhythm, compatible with aberrancy. She has undergone additional noninvasive testing with transthoracic echocardiogram and an exercise tolerance test/imaging study. He has been placed on medical therapy with beta-blockers and antiarrhythmic therapy with flecainide. Thus far since altering her medications yesterday afternoon she has not had any recurrent symptoms nor has she had any recurrent cardiac dysrhythmias. At the moment she will continue her current medical therapy today. She will be recommended for outpatient follow up / ECG, etc., to monitor her course. She has a [id number] score of 1 for an intermediate risk. At the present time she is continuing antiplatelet therapy. If she has recurrence of her atrial dysrhythmias then she may need to be considered to advancement to anticoagulant therapy. 2. Near syncope She has had episodes of near syncope. It appears some of her episodes, per her report, are thought to correlate with her tachydysrhythmia. She does feel better as her rate and rhythm have been calmer. At the moment she will continue her evaluation care as noted above. 3. Hyperlipidemia Her lipids can be evaluated. She should consider medical therapy as deemed appropriate. 4. Thyroid disorder She is to undergo further evaluation and care of her thyroid disorder under the direction of her primary care physician. However, depending upon her clinical course this may need to be assessed further as thyroid condition may or may not be contributing to her cardiac dysrhythmia, etc. Comment: The patient's case was discussed and reviewed with the patient and Dr. Crum. This note was generated using a voice recognition system and there may be incorrect words, spelling or punctuation that were not noted when reviewing the office note prior to saving.
--- NOTE | 2019-04-27 09:36 | DCINST_ITS ---
- Discharge Diagnoses Current Active Problems: Current Active and Chronic Problems Hypothyroidism (Chronic) Hypercholesterolemia (Chronic) Narrow complex tachycardia (Acute) Near syncope (Acute) Cardiac dysrhythmia (Acute) You will use the following diet at home:: Regular Your food should be the consistency of: Regular Your liquids should be the consistency of: Regular/Thin Discharge Activity: Return to Normal Activity Call your doctor if you observe: Fever of 101 or Higher, Shortness of breath, Dizziness, Fainting spells, Swelling in the ankles, Chest pain, Increased palpitations (irregular heartbeat) Allergies/Adverse Reactions: Allergies No Known Allergies Allergy (Verified 04/24/19 10:15) Medications to take at Discharge Ascorbic Acid [Vitamin C] 500 mg PO DAILY 04/24/19 Calcium Citrate/Vitamin D3 [Calcium Citrate-Vit D3 Tablet] 1 tab PO DAILY 04/24/19 Cholecalciferol (Vitamin D3) [Vitamin D3] 5,000 unit PO DAILY 04/24/19 Levothyroxine [Synthroid] 112 mcg PO DAILY 04/24/19 [place] Oxalate 120 mg PO DAILY 04/24/19 Niacin (Inositol Niacinate) [Niacin 500 mg Capsule] 500 mg PO DAILY 04/24/19 Reacted Magniusium 470 mg PO DAILY 04/24/19 Reacted Selenium 200 mg PO DAILY 04/24/19 Turmeric 1,200 mg PO DAILY 04/24/19 Aspirin [Aspirin, Baby] 81 mg PO DAILY@0800 #30 tab.chew 04/27/19 Flecainide [Tambocor] 100 mg PO BID #60 tab 04/27/19 Metoprolol Tartrate [Lopressor (beta elvira)] 50 mg PO BID #60 tab 04/27/19 The following prescriptions were given: Aspirin [Aspirin, Baby] 81 mg PO DAILY@0800 #30 tab.chew Transmission Status: Pending to [facility] Metoprolol Tartrate [Lopressor (beta elvira)] 50 mg PO BID #60 tab Transmission Status: Pending to [facility] Flecainide [Tambocor] 100 mg PO BID #60 tab Transmission Status: Pending to [facility] Primary Care Physician: Deon Mera MD [Primary Care Provider] - Please follow up with your Primary Care Physician in: 3-5 days Test Results: Test results from this visit will be discussed in further detail at your follow- up appointment, if applicable. Please Follow Up With: Ramiro Salas MD When: 2-4 weeks
[2019-04-27 10:11] VITALS: BP 119/77; PULSE 72; RESP 16; TEMP 36.7; O2SAT 98
--- NOTE | 2019-04-27 10:41 | DS.PCM_ITS ---
Discharge Date and Diagnosis Date of Admission: 04/24/19 Date of Discharge: 04/27/19 - Secondary Discharge Diagnosis Chronic Problems Hypothyroidism (Chronic) Hypercholesterolemia (Chronic) Hospital Course and Treatment Imaging Results: CXR: IMPRESSION: No acute abnormality is seen. Echo: Interpretation Summary Left ventricular systolic function is normal. The estimated ejection fraction is 65 %. The left atrium is mildly enlarged. Mild (1+) mitral valve insufficiency. Mild to moderate (1-2+) tricuspid valve insufficiency. Trivial aortic valve insufficiency. Right ventricular systolic pressure estimated to be 24 mmHg. No evidence for diastolic dysfunction. Stress Test: Impression: 1. Technically adequate (percent predicted maximal heart rate greater than 85%) exercise tolerance test 2. Peak exercise ECG with somatic/motion artifact with no obvious ECG changes 3. There was notation of intermittent episodes of an irregular narrow complex tachycardia during exercise and recovery appearing compatible with an ectopic atrial tachycardia and/or paroxysmal atrial fibrillation as well as intermittent episodes of PVCs during exercise; there was an isolated ventricular couplet/aberrant complex during exercise. 4. Nuclear images pending Myocardial perfusion imaging study: Technique: The patient was injected with 11.8 mCi of technetium 99m Cardiolite and subsequently rest SPECT Cardiolite nuclear imaging was obtained in the horizontal long, vertical long, and short axis views. The patient exercised on a Miguel protocol for 7 minutes completing Stage II and 1 minute of Stage III achieving a peak heart rate of 155 bpm (99 % predicted maximal heart rate) with a peak blood pressure 142/40 mmHg and a peak MET capacity of 8 METs. The patient was injected with 34.3 mCi of technetium 99m Cardiolite and subsequently stress SPECT Cardiolite nuclear imaging was obtained in the horizontal long, vertical long, and short axis views. A gated Cardiolite study at peak stress was obtained. Interpretation: Rest and stress SPECT Cardiolite nuclear imaging status post realignment and normalization demonstrates appearance of relative uniform tracer uptake and myocardial perfusion appearing within normal limits. There is end systolic thickening and brightening. The gated Cardiolite study demonstrates myocardial thickening and inward wall motion. The reported LVEF is 75 %. Impression: 1. Rest and stress SPECT Cardiolite nuclear imaging demonstrate relative uniform tracer uptake and myocardial perfusion appearing within normal limits. 2. The gated Cardiolite study reports an LVEF of 75 %. Consults: Cardiology Operations: None Procedures: 2-D Echocardiogram, Nuclear stress test Summary of Care Provided: Per HPI: The patient is a 64 year old F with a PMH as below who presents with palpitations. She says that she felt okay this morning and went to the gym and she was able to do some her of her normal exercises at her normal intensity and then after which she started feeling palpitations with lightheadedness and dizziness. She presented to the ER with SVT and a normal troponin, she did have a slightly elevated BNP however no other signs of heart failure. She states that she does have a history of hypothyroidism and is on Synthroid for that and was recently tested by her PCP and it was normal. When her rate that at times was up into the 200s slowed down it did appear that she was in sinus rhythm. She states that she is never had anything like this before. She states that she is also been having some diarrhea that is in a significant amount but is been going on for about a month and a half and she had seen her primary care for it and has had some stool test done that had all been negative. Hospital Course: 1. Near syncope with paroxysmal atrial [id number]-old female who does not take many medications presented with near syncope and palpitations. Her echo was unremarkable and a stress test was also normal. On telemetry she was showing evidence of PACs and PVCs as well as paroxysmal A. fib and episodes of nonsustained wide-complex tachycardia. Cardiology was consulted and initially started her on metoprolol and then added flecainide. With the addition of both metoprolol and flecainide her palpitations have resolved and she has maintained normal sinus rhythm. She has a chads vascular 1 and in discussing possible anticoagulation with her she would prefer to be on aspirin. She will need to follow-up with cardiology as an outpatient for follow-up. But at the moment she is okay for discharge. The discharge plan was discussed with her and she expressed understanding of the risks and benefits. 2. Her other medical diagnoses were evaluated and her home medications were continued appropriate. She is on multiple vitamins and there is a possibility that there could have been some toxicity, lithium level was checked which was normal. - Physical Exam Vitals/I&O's: Vital Signs Temp Pulse Resp BP Pulse Ox 98.1 F 72 16 119/77 98 04/27/19 07:52 04/27/19 08:02 04/27/19 07:52 04/27/19 08:02 04/27/19 07:52 Oxygen Delivery Method Room Air Weight: 181 lb 14.102 oz Body Mass Index (BMI) 28.5 Intake and Output for Last 24 Hours 04/25/19 04/26/19 04/27/19 23:59 23:59 23:59 Intake Total 1320 / 1520 1979 240 / 240 Balance 1320 / 1520 1979 240 / 240 General: Alert, Oriented x3, Cooperative, No apparent distress HEENT: Atraumatic, PERRLA, EOMI, Normocephalic Oral: Moist Mucosa Neck: Supple, No JVD Lungs: Clear to auscultation, Normal air movement, No rhonchi, No wheeze, No rales Cardiovascular: Regular rate, Regular Rhythm, Normal S1, Normal S2, No murmurs Abdomen: Soft, Non Tender, Non-Distended, No Hepato-splenomegaly Extremities: No edema, Capillary Refill Less than 3 Seconds Skin: No rashes, No breakdown Neurological: Neuro grossly intact, Sensory exam intact to light touch and pain Psych/Mental Status: Normal Affect, Appropriate Discharge Activity: Return to Normal Activity Call your doctor if you observe: Fever of 101 or Higher, Shortness of breath, Dizziness, Fainting spells, Swelling in the ankles, Chest pain, Increased palpitations (irregular heartbeat) Home Medications: Medications to take at Discharge Ascorbic Acid [Vitamin C] 500 mg PO DAILY 04/24/19 Calcium Citrate/Vitamin D3 [Calcium Citrate-Vit D3 Tablet] 1 tab PO DAILY 04/24/19 Cholecalciferol (Vitamin D3) [Vitamin D3] 5,000 unit PO DAILY 04/24/19 Levothyroxine [Synthroid] 112 mcg PO DAILY 04/24/19 [place] Oxalate 120 mg PO DAILY 04/24/19 Niacin (Inositol Niacinate) [Niacin 500 mg Capsule] 500 mg PO DAILY 04/24/19 Reacted Magniusium 470 mg PO DAILY 04/24/19 Reacted Selenium 200 mg PO DAILY 04/24/19 Turmeric 1,200 mg PO DAILY 04/24/19 Aspirin [Aspirin, Baby] 81 mg PO DAILY@0800 #30 tab.chew 04/27/19 Flecainide [Tambocor] 100 mg PO BID #60 tab 04/27/19 Metoprolol Tartrate [Lopressor (beta elvira)] 50 mg PO BID #60 tab 04/27/19 Following Prescrptions Were Given to Patient: Aspirin [Aspirin, Baby] 81 mg PO DAILY@0800 #30 tab.chew Transmission Status: Sent to [facility] Metoprolol Tartrate [Lopressor (beta elvira)] 50 mg PO BID #60 tab Transmission Status: Sent to [facility] Flecainide [Tambocor] 100 mg PO BID #60 tab Transmission Status: Sent to [facility] Primary Care Physician: Deon Mera MD [Primary Care Provider] - Please follow up with your Primary Care Physician in: 3-5 days Please Follow Up With: Ramiro Salas MD When: 2-4 weeks Disposition: Home Minutes spent on discharge:: 35 Patient Condition:: Stable Medical Necessity - Tobacco Use Smoking Status: Never smoker Meaningful Use Info Meaningful Use Diagnoses (Choose all that apply): None applicable Inpatient E&M: 54387 Disch Hosp
== END 2019-04-27 10:24 | disposition home or self-care (01) | DRG 310 ==
LOC: ED 13:22 → PCU 13:48
PROVIDERS: Admitting Provider Family Medicine; Emergency Provider Emergency Medicine; PCP Family Medicine; Visit Provider Family Medicine
DX: I47.1 Supraventricular tachycardia (principal); R55 Syncope and collapse; I48.0 Paroxysmal atrial fibrillation; E03.9 Hypothyroidism, unspecified; E78.00 Pure hypercholesterolemia, unspecified; Z79.899 Other long term (current) drug therapy
CPT/HCPCS: 36415; 71045; 78452; 80048; 80178; 83735; 83880; 84100; 84484; 85025; 93005; 93017; 93306; 99285; A9500; Q9957; A4216

== ENCOUNTER → 2019-04-27 | Outpatient (CLI) | payer OTHER, SELFPAY ==
[2019-04-24 15:53] VITALS: BMI 28.5
--- NOTE | 2019-04-27 10:27 | US_ITS ---
HISTORY: Thyroid nodules. 44 images and one cine clip. No previous imaging of the thyroid gland is provided. Findings: The right lobe of the thyroid gland measures 1.2 x 3 x 1 cm. The thyroid gland is slightly heterogeneous. Superior to the right lobe of the thyroid gland there is a 1.8 x 0.6 cm lymph node. The thyroid isthmus is thin at 2 mm. The left lobe of the thyroid gland measures 1 x 2.8 x 1.2 cm. The thyroid gland is heterogeneous. No distinct nodules are perceived. US/Thyroid IMPRESSION: No thyroid nodules. Slightly heterogeneous thyroid gland. at 0604 Reported and signed by: Power Urrutia MD Electronically Signed: Power Urrutia MD at 6:03 EST Tel , Service support ,
== END | disposition home or self-care (01) ==
LOC: US 10:26
PROVIDERS: PCP Family Medicine; Referring Provider Family Medicine; Visit Provider Family Medicine
DX: E04.1 Nontoxic single thyroid nodule (principal)
CPT/HCPCS: 76536

== ENCOUNTER → 2019-07-24 | Outpatient (CLI) | payer OTHER, SELFPAY ==
[2019-07-04 09:15] VITALS: BMI 28.5
--- NOTE | 2019-07-24 08:18 | BI_ITS ---
MAMMOGRAPHY - BILATERAL SCREENING REASON FOR EXAM: Female, 64 years old. Routine annual screening examination. PERTINENT HISTORY: Non-contributory. TECHNIQUE: Digital bilateral breast lydia (3D mammographic acquisition) in the CC and MLO projections. 2-D mediolateral oblique (MLO) and craniocaudad (CC) views of both breasts were obtained. CAD: Full Field Digital Mammography with Computer Added Detection was performed. COMPARISON: Comparison is made with prior examination dated April 16, 2016. FINDINGS: Breast Composition: There are scattered areas of fibroglandular density. There are no dominant masses or suspicious calcifications. Stable small benign-appearing bilateral axillary lymph nodes. No other significant abnormalities are identified. There has been no significant change since the prior study. BI/SCREEN MAMM (CAD) W/LYDIA BILAT IMPRESSION: Stable bilateral screening mammogram. Yearly follow-up mammogram recommended. (A) ASSESSMENT CATEGORY: BIRADS Category 2: Benign. A letter regarding these results will be sent to the patient by the facility within 30 days. Approximately 10% of breast cancers are not detected by mammography. A normal mammogram should not delay biopsy of a clinically suspicious abnormality. [id number] Electronically Signed: Myron Ramachandran, at 12:25 EDT , Service support ,
== END | disposition home or self-care (01) ==
LOC: OPBI 08:18
PROVIDERS: PCP Family Medicine; Referring Provider Obstetrics & Gynecology; Visit Provider Obstetrics & Gynecology
DX: Z12.31 Encounter for screening mammogram for malignant neoplasm of breast (principal)
CPT/HCPCS: 77063; 77067

== ENCOUNTER 2019-08-07 05:57 | Day surgery (SDC) | payer OTHER, SELFPAY ==
[2019-07-04 09:15] VITALS: BMI 28.5
[2019-07-25 13:34] VITALS: BMI 28.5
[2019-08-06 12:13] LABS: Probe Check PASS; Specimen Processing Control PASS
[2019-08-07] VITALS (7 sets, daily range): BP systolic 99–116; BP diastolic 64–78; PULSE 54–81; RESP 16; TEMP 36.3–36.4; O2SAT 98–100; BMI 27.5
--- NOTE | 2019-08-07 06:14 | PCM.HP.STD ---
Problem List (1) Diarrhea Status: Acute Qualifiers: Diarrhea type: unspecified type History of Present Illness Date of Admission: 08/07/19 The patient is a 64 year old F who had presented to the office earlier in the COVID-19 pandemic. Her concern was diarrhea. Then that seemed to resolve. She denies bright red blood per rectum or melena. Over the last couple weeks the diarrhea has returned. She is diffuse abdominal crampy pain. She does not think she had any food intolerance. She denies fever or chills. No shortness of breath. No history of deep venous thrombosis. No history of previous colonoscopy. Past Medical History Past Medical History (Chronic Problems): Chronic Problems (Last Reviewed 07/25/19 @ 13:39 by Dariana Ayala) Pure hypercholesterolemia (Chronic) Hypothyroidism (Chronic) Medical History: Medical History (Last Reviewed 07/25/19 @ 13:39 by Dariana Ayala) Non-rheumatic tricuspid valve insufficiency (Acute) I36.1 Non-rheumatic mitral regurgitation (Acute) I34.0 Pure hypercholesterolemia (Chronic) E78.00 Diarrhea (Acute) R19.7 Hypothyroidism (Chronic) E03.9 Narrow complex tachycardia (Acute) I47.1 Near syncope (Acute) R55 Cardiac dysrhythmia (Acute) I49.9 Hypercholesterolemia (Inactive) E78.00 Allergies No Known Allergies Allergy (Verified 08/06/19 10:56) Home Medications: Ambulatory Orders Medication Instructions Recorded Levothyroxine [Synthroid] 112 mcg PO DAILY 04/24/19 Aspirin [Aspirin, Baby] 81 mg PO DAILY@0800 #30 tab.chew 04/27/19 magnesium oxide 500 mg capsule 500 mg PO DAILY 05/24/19 ascorbic acid (vitamin C) 500 mg 1,000 mg PO DAILY cap 05/28/19 capsule calcium citrate 315 mg-vitamin D3 2 tab PO BID tab 05/28/19 250 unit tablet omega 9-zyv-bes-fish oil 1,600 15 ml PO DAILY ml 05/28/19 mg-500 mg-800 mg/5 mL oral liquid metoprolol tartrate 25 mg tablet 12.5 mg PO BID tab 07/25/19 rosuvastatin 5 mg tablet 5 mg PO DAILY 07/25/19 Flecainide Acetate 50 mg PO BID 08/06/19 Melatonin/Pyridoxine [Melatonin 5 1 ea PO DAILY 06/15/20 mg Tablet] Surgical History: Surgical History (Last Reviewed 07/25/19 @ 13:39 by Dariana Ayala) H/O tubal ligation Z98.51 Heel spur M77.30 Smoking Status: Never smoker Tobacco Use: Non-smoker Review of Systems Constitutional: Denies: Chills, Fever HEENT: Denies: Difficulty Swallowing Cardiovascular: Denies: Chest Pain Respiratory: Denies: Cough, Shortness of Breath Gastrointestinal: Reports: Diarrhea Endocrine: Denies: Change in Body Habitus VTE Information - Inpt Only VTE Present on Admission: No - Physical Exam Vitals/I&O's: Body Mass Index (BMI) 28.5 General: Alert, Oriented x3, Cooperative, No apparent distress HEENT: Atraumatic Oral: Moist Mucosa Lungs: Clear to auscultation, Normal air movement Cardiovascular: Regular rate, Regular Rhythm Abdomen: Bowel Sounds Present, Soft, Non Tender Neurological: - - Normal cognition Psych/Mental Status: Normal Affect Laboratory Results 08/06/19 09:15: COVID-19 ([facility]IL[facility]ANO) Negative 08/07/19 06:55: COVID-19 ([facility]IL[facility]ANO) Cancelled Assessment/Plan All Active Problems (Last Reviewed 07/25/19 @ 13:39 by Dariana Ayala) Non-rheumatic tricuspid valve insufficiency (Acute) Non-rheumatic mitral regurgitation (Acute) Diarrhea (Acute) Narrow complex tachycardia (Acute) Near syncope (Acute) Cardiac dysrhythmia (Acute) 64-year-old female who presents having now with current problems with diarrhea at this time associated with severe diffuse crampy abdominal pain of undetermined etiology. She has never had a previous colonoscopy. I propose for her colonoscopy with anticipated random colonic biopsies possible polypectomy. She has had an opportunity to ask and have questions answered. Declan Virgen M.D., F.A.C.S. Procedure Criteria Procedure Type: Elective COVID Risk Discussion: The surgeon/proceduralist and patient have discussed in detail the risk of exposure to and/or potential harm posed by the COVID-19 virus with having a surgery/procedure at this time versus the risk of delaying the surgery/procedure. It is not possible to know either the risk of delaying the surgery or procedure or chance of getting an infection with perfect accuracy, but a joint decision was made between the patient and the surgeon/proceduralist to proceed at this time with the scheduled surgery/procedure as indicated on the consent form.
[2019-08-07] MEDS: Lactated Ringers 1,000 ML 100 ML IV (06:47)
--- NOTE | 2019-08-07 07:00 | COLBX_PTH ---
PATIENT: MARIN TRIANA LOC: EN U#:[id number] AGE/SX: 64/F ROOM: RE08/07/[address]: Dr. Declan Virgen MD : [id number] BED: DIS: 08/07/2019 SPEC #: [id number] RECD: 08/07/19 10:27 STATUS: TIANNA SAI #: [id number] WILLIE: 08/07/19 07:[address]: Declan Virgen DEPT: SURGICAL PATHOLOGY RECD BY: Lise Bassett ENTERED: 08/07/19 11:17 SP TYPE: COLON BX OTHR DR: Dr. Deon Mera MD Tissues: A - Ileum, NOS B - COLON BIOPSY C - Sigmoid colon biopsy Procedures: Trichrome (control) Special Stain Group II Surgery Specimen Level IV HEADER OPERATION: Colonoscopy (MAC) PRE-OP DIAGNOSIS: Diarrhea TISSUE SUBMITTED: A - Terminal ileum biopsy, B - Random colon biopsies, C - Proximal sigmoid biopsy MICROSCOPIC DIAGNOSIS A. Terminal ileum, biopsy: Fragments of small intestinal mucosa, no pathologic diagnosis. B. Colon, random biopsy: Fragments of colonic mucosa with changes consistent with lymphocytic/microscopic colitis. See comment. C. Proximal sigmoid biopsy: Fragments of colonic mucosa with minimal changes consistent with lymphocytic/microscopic colitis. See comment. SJ:rg 08/08/19 COMMENT B & C. Trichrome stain with matched control was used in the evaluation of the specimens and does not show significant thickening of subepithelial collagen band. Correlation with clinical, endoscopic findings and appropriate follow up are necessary. Case has been reviewed in consultation with Dr. Leal who concurs with the above diagnosis. IDC:AM MICROSCOPIC DESCRIPTION Slides are reviewed. GROSS DESCRIPTION A - Received in fixative is one container labeled with the patient's name and designated terminal ileum biopsy. The specimen consists of multiple irregular fragments of light hurt soft tissue that in aggregate measure 0.5 x 0.3 x 0.1 cm. The specimen is totally submitted in one cassette. B - Received in fixative is one container labeled with the patient's name and designated random colon biopsy. The specimen consists of multiple irregular fragments of light hurt soft tissue that in aggregate measure 1.5 x 0.5 x 0.1 cm. The specimen is totally submitted in one cassette. C - Received in fixative is one container labeled with the patient's name and designated proximal sigmoid biopsy. The specimen consists of multiple irregular fragments of light hurt soft tissue that in aggregate measure 1.5 x 0.3 x 0.1 cm. The specimen is totally submitted in one cassette. / SJ:rg 08/07/19 TC:3 CPT: 69485 x3, 73715 x2
--- NOTE | 2019-08-07 07:26 | OP.COLON_ITS ---
Patient Name: Carmen Dugan Procedure Date: 08/07/2019 6:51 AM Date of : 1955 Age: 64 Procedure: Colonoscopy Indications: Abdominal pain in the left lower quadrant, Clinically significant diarrhea of unexplained origin Providers: Declan Virgen MD Referring MD: Deon Mera Medicines: See the Anesthesia note for documentation of the administered medications Patient Profile: Last Colonoscopy: none. The patient's first colonoscopy is today. Complications: No immediate complications. Procedure: Pre-Anesthesia Assessment: - Prior to the procedure, a History and Physical was performed, and patient medications and allergies were reviewed. The patient's tolerance of previous anesthesia was also reviewed. The risks and benefits of the procedure and the sedation options and risks were discussed with the patient. All questions were answered, and informed consent was obtained. Prior Anticoagulants: The patient has taken no previous anticoagulant or antiplatelet agents. ASA Grade Assessment: II - A patient with mild systemic disease. After reviewing the risks and benefits, the patient was deemed in satisfactory condition to undergo the procedure. After I obtained informed consent, the scope was passed under direct vision. Throughout the procedure, the patient's blood pressure, pulse, and oxygen saturations were monitored continuously. The Colonoscope was introduced through the anus and advanced to the terminal ileum. The colonoscopy was performed without difficulty. The patient tolerated the procedure well. The quality of the bowel preparation was good. The terminal ileum, the ileocecal valve and the appendiceal orifice were photographed. Scope In: 7:01:10 AM Scope Withdrawal Time 0 hours 8 minutes 43 seconds Scope Out: 7:15:05 AM Total Procedure Duration Time 0 hours 13 minutes 55 seconds Findings: The digital rectal exam findings include non-thrombosed external hemorrhoids, non-thrombosed internal hemorrhoids and internal hemorrhoids that prolapse with straining, but spontaneously regress to the resting position (Grade II). Normal mucosa was found terminal ileum, biopsies obtained. Multiple diverticula were found in the sigmoid colon. Biopsies for histology were taken with a cold forceps from the entire colon for evaluation of microscopic colitis. Biopsies were taken with a cold forceps for histology. Localized mild inflammation characterized by congestion (edema) was found in the proximal sigmoid colon. Impression: - Non-thrombosed external hemorrhoids, non-thrombosed internal hemorrhoids and internal hemorrhoids that prolapse with straining, but spontaneously regress to the resting position (Grade II) found on digital rectal exam. - Normal mucosa: terminal ileum, biopsied - Diverticulosis in the sigmoid colon. Biopsied at site of suspected acute inflammation - Localized mild inflammation was found in the proximal sigmoid colon. Suspected acute diverticulitis Random colonic biopsies obtained throughout entire colon Recommendation: - Discharge patient to home. - Resume previous diet. - Continue present medications. - Augmentin (amoxicillin/clavulanate) 875 mg PO BID for 7 days. - Repeat colonoscopy in 10 years for screening purposes. Procedure Code(s): --- Professional --- 91390, Colonoscopy, flexible; with biopsy, single or multiple Diagnosis Code(s): --- Professional --- K64.1, Second degree hemorrhoids K64.4, Residual hemorrhoidal skin tags K52.9, Noninfective gastroenteritis and colitis, unspecified R10.32, Left lower quadrant pain R19.7, Diarrhea, unspecified K57.30, Diverticulosis of large intestine without perforation or abscess without bleeding CPT copyright 2017 [employer]. All rights reserved. The codes documented in this report are preliminary and upon outdoor emergency care technician review may be revised to meet current compliance requirements. Declan Virgen MD 08/07/2019 7:25:51 AM This report has been signed electronically. Number of Addenda: 0 Note Initiated On: 08/07/2019 6:51 AM
--- NOTE | 2019-08-07 07:26 | OP.CCLET_ITS ---
08/07/2019 Deon Mera [address] [place] [address] Re : Colonoscopy procedure for Carmen Irenarosetta Dear Dr. Mera This procedure was performed on Wednesday, August 07, 2019. My impressions and recommendations are as follows: Impressions : - Non-thrombosed external hemorrhoids, non-thrombosed internal hemorrhoids and internal hemorrhoids that prolapse with straining, but spontaneously regress to the resting position (Grade II) found on digital rectal exam. - Normal mucosa: terminal ileum, biopsied - Diverticulosis in the sigmoid colon. Biopsied at site of suspected acute inflammation - Localized mild inflammation was found in the proximal sigmoid colon. Suspected acute diverticulitis Random colonic biopsies obtained throughout entire colon Recommendations : - Discharge patient to home. - Resume previous diet. - Continue present medications. - Augmentin (amoxicillin/clavulanate) 875 mg PO BID for 7 days. - Repeat colonoscopy in 10 years for screening purposes. My findings are described in the full procedure note, which is enclosed. If I can be of further assistance, please feel free to contact me at Doctor phone number(s): Work: . Sincerely, Declan Virgen MD 08/07/2019 7:25:51 AM This report has been signed electronically.
== END 2019-08-07 07:55 | disposition home or self-care (01) ==
LOC: EN 05:58 → AC 05:59
PROVIDERS: Physician Assistant; PCP Family Medicine; Referring Provider Family Medicine; Visit Provider Surgery
PROC: 0DJD8ZZ Inspection of Lower Intestinal Tract, Via Natural or Artificial Opening Endoscopic (ICD-10-PCS; CPT 45378; principal; 2019-08-07 06:55)
DX: K57.30 Diverticulosis of large intestine without perforation or abscess without bleeding (principal); K64.1 Second degree hemorrhoids; E78.00 Pure hypercholesterolemia, unspecified; E03.9 Hypothyroidism, unspecified; Z79.82 Long term (current) use of aspirin; Z79.899 Other long term (current) drug therapy; Z11.59 Encounter for screening for other viral diseases
CPT/HCPCS: 45380; 87635; 88305; 88313; G2023; J7120; J2405; U0003

== ENCOUNTER → 2019-08-14 | Outpatient (CLI) | payer OTHER, SELFPAY ==
[2019-08-07 06:38] VITALS: BMI 27.5
[2019-08-14 12:57] LABS: Absolute Lymphocyte Count 1.83 X10^3/uL (0.83-4.51); Absolute Neutrophil Count 2.8 X10^3/uL (2.0-7.7); Basophil# 0.07 X10^3/uL; Basophil% 1.3 % (0-1); Eosinophil# 0.29 X10^3/uL; Eosinophils% 5.3 % (0-5); Hematocrit 39.8 % (37-47); Hemoglobin 12.6 g/dL (12.0-15.0); Lymphocyte # 1.83 X10^3/ul (4.0); Lymphocyte % 33.2 % (19-41); Mean Corp Hgb Conc 31.7 g/dL (32-36); Mean Corpuscular Hgb 31.4 pg (27.0-32.0); Mean Corpuscular Volume 99.3 fL (81-99); Mean Platelet Vol. 12.5 fl (6.2-12.0); Monocyte# 0.52 X10^3/uL; Monocyte% 9.4 % (0-10); NRBC Flagged by Analyzer 0 % (0-5); Neutrophil # 2.81 X10^3/uL (2.7-7.7); Neutrophil % 50.8 % (47-70); Platelet Count 271 K/mm3 (150-450); RBC Distribution Width CV 12.3 % (11.6-14.6); Red Blood Count 4.01 M/mm3 (4.2-5.4); White Blood Count 5.5 K/mm3 (4.4-11.0)
[2019-08-14 13:16] LABS: ALB/GLOB Ratio 1.1 RATIO (0.9-2.4); AST(SGOT) 14 U/L (15-37); Alanine Aminotransfer ALT/SGPT 19 U/L (13-56); Albumin, Serum 3.6 g/dL (3.2-5.0); Alkaline Phosphatase 73 U/L (45-117); Anion Gap 6 (5-15); BUN 10 mg/dL (7-18); BUN/Creat Ratio 12.2 RATIO (10-20); Chloride 109 mmol/L (98-107); Cholesterol 140 mg/dL (200); Creatinine, Serum 0.82 mg/dL (0.55-1.02); EST Glomerular Filtration Rate 75 mL/min (>60); Est Glom Filt Rate - Afr Amer 90 mL/min (>60); Globulin 3.4 g/dL (2.2-4.2); Glucose 84 mg/dL (74-106); High Density Lipoprotein 52 mg/dL; Potassium 4.2 mmol/L (3.5-5.1); Sodium Level 143 mmol/L (136-145); T4 Free Direct 1.22 ng/dL (0.76-1.46); Thyroid Stim Hormone (TSH) 0.45 uIU/mL (0.358-3.74); Triglycerides 102 mg/dL; Very Low Density Lipoprotein 20 mg/dL (5-40)
== END | disposition home or self-care (01) ==
LOC: MFPLAB 10:11
PROVIDERS: PCP Family Medicine; Referring Provider Family Medicine; Visit Provider Family Medicine
DX: I48.0 Paroxysmal atrial fibrillation (principal); E78.00 Pure hypercholesterolemia, unspecified; E03.9 Hypothyroidism, unspecified
CPT/HCPCS: 36415; 80053; 80061; 84439; 84443; 85025

== ENCOUNTER → 2019-10-25 | Outpatient (CLI) | payer OTHER, SELFPAY ==
[2019-10-25 11:19] VITALS: BMI 27.4
[2019-10-25 12:12] LABS: Absolute Lymphocyte Count 1.36 X10^3/uL (0.83-4.51); Absolute Neutrophil Count 4.3 X10^3/uL (2.0-7.7); Basophil# 0.03 X10^3/uL; Basophil% 0.5 % (0-1); Eosinophil# 0.18 X10^3/uL; Eosinophils% 2.8 % (0-5); Hemoglobin 12.5 g/dL (12.0-15.0); Lymphocyte # 1.36 X10^3/ul (4.0); Lymphocyte % 21.2 % (19-41); Mean Corp Hgb Conc 32.1 g/dL (32-36); Mean Corpuscular Hgb 31.3 pg (27.0-32.0); Mean Corpuscular Volume 97.5 fL (81-99); Mean Platelet Vol. 11.2 fl (6.2-12.0); Monocyte# 0.55 X10^3/uL; Monocyte% 8.6 % (0-10); NRBC Flagged by Analyzer 0 % (0-5); Neutrophil # 4.28 X10^3/uL (2.7-7.7); Neutrophil % 66.6 % (47-70); Platelet Count 253 K/mm3 (150-450); RBC Distribution Width CV 12.3 % (11.6-14.6); RBC Distribution Width SD 44.3 fl (35.1-43.9); White Blood Count 6.4 K/mm3 (4.4-11.0)
[2019-10-26 04:26] LABS: Cancer Antigen 125 6.7 U/mL (0.0-38.1)
== END | disposition home or self-care (01) ==
PROVIDERS: PCP Family Medicine; Referring Provider Obstetrics & Gynecology; Visit Provider Obstetrics & Gynecology
DX: N89.8 Other specified noninflammatory disorders of vagina (principal); R10.2 Pelvic and perineal pain
CPT/HCPCS: 36415; 85025; 86304; 87077; 87086; 87088; 87186

== ENCOUNTER → 2019-11-13 | Outpatient (CLI) | payer OTHER, SELFPAY ==
[2019-10-25 11:19] VITALS: BMI 27.4
--- NOTE | 2019-11-13 11:24 | US_ITS ---
STUDY: ULTRASOUND OF THE FEMALE PELVIS - COMPLETE REASON FOR EXAM: Female, 64 years old. PELVIC PAIN LMP: Postmenopausal. TECHNIQUE: Transvaginal TECHNICAL QUALITY: Adequate. COMPARISON: None. FINDINGS: The uterus is anteverted and is in a midline position. The uterus measures 6.4 cm x 3.3 cm x 2.9 cm. There is a Nabothian cyst of the cervix. The endometrium measures 2.8 mm in thickness, and is hyperechoic. There is no demonstrated endometrial mass. There is no demonstrated myometrial mass. I.U.D. - The patient does not have an I.U.D. The right ovary is non-visualized. The left ovary is non-visualized. There is no fluid in the cul-de-sac. Polycystic ovary disease: No. US/Transvaginal Non- IMPRESSION: Normal female pelvis. Electronically Signed: Myron Ramachandran, at 13:48 EDT , Service support ,
== END | disposition home or self-care (01) ==
LOC: US 11:24
PROVIDERS: PCP Family Medicine; Referring Provider Obstetrics & Gynecology; Visit Provider Obstetrics & Gynecology
DX: R10.2 Pelvic and perineal pain (principal)
CPT/HCPCS: 76830

== ENCOUNTER → 2020-02-07 08:40 | Outpatient (CLI) | payer OTHER, SELFPAY ==
[2019-10-25 11:19] VITALS: BMI 27.4
[2020-02-07 10:04] LABS: ALB/GLOB Ratio 1.2 RATIO (0.9-2.4); AST(SGOT) 14 U/L (15-37); Alanine Aminotransfer ALT/SGPT 23 U/L (13-56); Albumin, Serum 3.8 g/dL (3.2-5.0); Alkaline Phosphatase 76 U/L (45-117); Anion Gap 5 (5-15); BUN 18 mg/dL (7-18); BUN/Creat Ratio 19.7 RATIO (10-20); Calcium,Total 8.7 mg/dL (8.5-10.1); Chloride 105 mmol/L (98-107); Cholesterol 198 mg/dL (200); Creatinine, Serum 0.91 mg/dL (0.55-1.02); EST Glomerular Filtration Rate 66 mL/min (>60); Est Glom Filt Rate - Afr Amer 79 mL/min (>60); Globulin 3.3 g/dL (2.2-4.2); Glucose 93 mg/dL (74-106); High Density Lipoprotein 66 mg/dL; Magnesium 2.3 mg/dL (1.6-2.6); Protein, Total 7.1 g/dL (6.4-8.2); Sodium Level 141 mmol/L (136-145); Thyroid Stim Hormone (TSH) 0.15 uIU/mL (0.358-3.74); Triglycerides 97 mg/dL; Very Low Density Lipoprotein 19 mg/dL (5-40)
== END ==
PROVIDERS: PCP Family Medicine; Referring Provider Family Medicine; Visit Provider Family Medicine
DX: E78.00 Pure hypercholesterolemia, unspecified (principal); I48.0 Paroxysmal atrial fibrillation; E03.9 Hypothyroidism, unspecified
CPT/HCPCS: 36415; 80053; 80061; 83735; 84443

== ENCOUNTER → 2020-05-07 10:15 | Outpatient (CLI) | payer MEDICARE, SELFPAY ==
[2019-10-25 11:19] VITALS: BMI 27.4
[2020-05-07 12:51] LABS: ALB/GLOB Ratio 1.1 RATIO (0.9-2.4); AST(SGOT) 18 U/L (15-37); Alanine Aminotransfer ALT/SGPT 25 U/L (13-56); Albumin, Serum 3.8 g/dL (3.2-5.0); Alkaline Phosphatase 76 U/L (45-117); Anion Gap 4 (5-15); BUN 20 mg/dL (7-18); BUN/Creat Ratio 18.7 RATIO (10-20); Calcium,Total 9.5 mg/dL (8.5-10.1); Chloride 107 mmol/L (98-107); Cholesterol 230 mg/dL (200); Creatinine, Serum 1.07 mg/dL (0.55-1.02); EST Glomerular Filtration Rate 55 mL/min (>60); Est Glom Filt Rate - Afr Amer 66 mL/min (>60); Globulin 3.4 g/dL (2.2-4.2); Glucose 89 mg/dL (74-106); High Density Lipoprotein 70 mg/dL; Magnesium 2.1 mg/dL (1.6-2.6); Potassium 4.2 mmol/L (3.5-5.1); Protein, Total 7.2 g/dL (6.4-8.2); Sodium Level 141 mmol/L (136-145); T4 Free Direct 1.17 ng/dL (0.76-1.46); Thyroid Stim Hormone (TSH) 0.68 uIU/mL (0.358-3.74); Triglycerides 102 mg/dL; Very Low Density Lipoprotein 20 mg/dL (5-40)
== END ==
PROVIDERS: PCP Family Medicine; Referring Provider Family Medicine; Visit Provider Family Medicine
DX: I48.0 Paroxysmal atrial fibrillation (principal); E03.9 Hypothyroidism, unspecified; E78.00 Pure hypercholesterolemia, unspecified
CPT/HCPCS: 36415; 80053; 80061; 83735; 84439; 84443

== ENCOUNTER → 2020-05-20 10:19 | Outpatient (CLI) | payer MEDICARE, SELFPAY ==
[2019-10-25 11:19] VITALS: BMI 27.4
[2020-05-20 12:18] LABS: Anion Gap 4 (5-15); BUN 14 mg/dL (7-18); BUN/Creat Ratio 14.8 RATIO (10-20); Calcium,Total 9.5 mg/dL (8.5-10.1); Chloride 105 mmol/L (98-107); Creatinine, Serum 0.95 mg/dL (0.55-1.02); EST Glomerular Filtration Rate 63 mL/min (>60); Est Glom Filt Rate - Afr Amer 76 mL/min (>60); Glucose 85 mg/dL (74-106); Potassium 4.1 mmol/L (3.5-5.1); Sodium Level 137 mmol/L (136-145)
== END ==
PROVIDERS: PCP Family Medicine; Referring Provider Family Medicine; Visit Provider Family Medicine
DX: R94.4 Abnormal results of kidney function studies (principal)
CPT/HCPCS: 36415; 80048

== ENCOUNTER → 2020-07-17 10:00 | Outpatient (CLI) | payer MEDICARE, SELFPAY ==
[2020-07-11 10:37] VITALS: BMI 28.8
== END ==
PROVIDERS: PCP Family Medicine; Referring Provider Internal Medicine Cardiovascular Disease; Visit Provider Internal Medicine Cardiovascular Disease
DX: I47.1 Supraventricular tachycardia (principal)
CPT/HCPCS: 93225; 93226

== ENCOUNTER → 2020-08-19 10:15 | Outpatient (CLI) | payer MEDICARE, SELFPAY ==
[2020-07-11 10:37] VITALS: BMI 28.8
[2020-08-19 12:13] LABS: Absolute Lymphocyte Count 2.09 X10^3/uL (0.83-4.51); Absolute Neutrophil Count 2.5 X10^3/uL (2.0-7.7); Basophil# 0.05 X10^3/uL; Basophil% 0.9 % (0-1); Eosinophil# 0.42 X10^3/uL; Eosinophils% 7.5 % (0-5); Hematocrit 38.8 % (37-47); Hemoglobin 12.7 g/dL (12.0-15.0); Lymphocyte # 2.09 X10^3/ul (0.83-4.51); Lymphocyte % 37.3 % (19-41); Mean Corp Hgb Conc 32.7 g/dL (32-36); Mean Corpuscular Hgb 31.5 pg (27.0-32.0); Mean Corpuscular Volume 96.3 fL (81-99); Monocyte# 0.51 X10^3/uL; Monocyte% 9.1 % (0-10); NRBC Flagged by Analyzer 0 % (0-5); Neutrophil # 2.52 X10^3/uL (2.7-7.7); Platelet Count 249 K/mm3 (150-450); RBC Distribution Width CV 12.1 % (11.6-14.6); RBC Distribution Width SD 43.3 fl (35.1-43.9); Red Blood Count 4.03 M/mm3 (4.2-5.4); White Blood Count 5.6 K/mm3 (4.4-11.0)
[2020-08-19 12:38] LABS: ALB/GLOB Ratio 1.2 RATIO (0.9-2.4); AST(SGOT) 18 U/L (15-37); Alanine Aminotransfer ALT/SGPT 22 U/L (13-56); Albumin, Serum 3.7 g/dL (3.2-5.0); Alkaline Phosphatase 70 U/L (45-117); Anion Gap 6 (5-15); BUN 17 mg/dL (7-18); Calcium,Total 8.8 mg/dL (8.5-10.1); Chloride 104 mmol/L (98-107); Cholesterol 215 mg/dL (200); Creatinine, Serum 1.06 mg/dL (0.55-1.02); EST Glomerular Filtration Rate 55 mL/min (>60); Est Glom Filt Rate - Afr Amer 67 mL/min (>60); Globulin 3.1 g/dL (2.2-4.2); Glucose 96 mg/dL (74-106); High Density Lipoprotein 62 mg/dL; Magnesium 2.1 mg/dL (1.6-2.6); Protein, Total 6.8 g/dL (6.4-8.2); Sodium Level 140 mmol/L (136-145); Thyroid Stim Hormone (TSH) 2.22 uIU/mL (0.358-3.74); Triglycerides 116 mg/dL; Very Low Density Lipoprotein 23 mg/dL (5-40)
== END ==
PROVIDERS: PCP Family Medicine; Visit Provider Family Medicine
DX: I47.1 Supraventricular tachycardia (principal); E78.00 Pure hypercholesterolemia, unspecified; E03.9 Hypothyroidism, unspecified
CPT/HCPCS: 36415; 80053; 80061; 83735; 84439; 84443; 85025

== ENCOUNTER → 2020-09-16 09:54 | Outpatient (CLI) | payer MEDICARE, SELFPAY ==
[2019-10-25 11:19] VITALS: BMI 27.4
[2020-09-16 09:17] VITALS: BMI 28.8
--- NOTE | 2020-09-16 09:57 | BI_ITS ---
MAMMOGRAPHY - BILATERAL SCREENING REASON FOR EXAM: Female, 65 years old. Routine annual screening examination. PERTINENT HISTORY: Non-contributory. TECHNIQUE: Digital bilateral breast lydia (3D mammographic acquisition) in the CC and MLO projections. 2-D mediolateral oblique (MLO) and craniocaudad (CC) views of both breasts were obtained. CAD: Full Field Digital Mammography with Computer Added Detection was performed. COMPARISON: Comparison is made with prior study dated 07/24/2019 and 04/16/2016. FINDINGS: Breast Composition: There are scattered areas of fibroglandular density. There are no dominant masses or suspicious calcifications. Stable small benign appearing bilateral axillary lymph nodes. No other significant abnormalities are identified. There has been no significant change since the prior study. BI/SCRN MAMM (CAD)W/LYDIA BILAT IMPRESSION: Stable bilateral screening mammogram. Yearly follow-up mammogram recommended. (A) ASSESSMENT CATEGORY: BIRADS Category 2: Benign. A letter regarding these results will be sent to the patient by the facility within 30 days. Approximately 10% of breast cancers are not detected by mammography. A normal mammogram should not delay biopsy of a clinically suspicious abnormality. [id number] Electronically Signed: Myron Ramachandran MD at 11:04 EDT , Service support ,
[2020-09-19 10:28] LABS: HPV Reflexed? NOT INDICATED
== END ==
PROVIDERS: PCP Family Medicine; Referring Provider Obstetrics & Gynecology; Visit Provider Obstetrics & Gynecology
DX: Z12.31 Encounter for screening mammogram for malignant neoplasm of breast (principal); Z12.4 Encounter for screening for malignant neoplasm of cervix
CPT/HCPCS: 77063; 77067; 88175; G0145

== ENCOUNTER → 2020-11-13 11:55 | Outpatient (CLI) | payer MEDICARE, SELFPAY ==
[2020-11-13 12:02] LABS: Bacteria 0 SEEN /hpf (None Seen); Mucous, Urine 0 SEEN /hpf (<or=2+); Red Blood Cells-Urine 0 SEEN /hpf (0-5); Squamous Epithelial Cells - UA 0 SEEN /hpf (5-10); White Blood Cells 0 SEEN /hpf (0-5)
[2020-11-13 14:58] LABS: Absolute Lymphocyte Count 2.02 X10^3/uL (0.83-4.51); Basophil# 0.06 X10^3/uL; Eosinophil# 0.41 X10^3/uL; Eosinophils% 6.9 % (0-5); Hematocrit 39.8 % (37-47); Hemoglobin 12.8 g/dL (12.0-15.0); Lymphocyte # 2.02 X10^3/ul (0.83-4.51); Lymphocyte % 33.8 % (19-41); Mean Corp Hgb Conc 32.2 g/dL (32-36); Mean Corpuscular Volume 99.5 fL (81-99); Mean Platelet Vol. 12.1 fl (6.2-12.0); Monocyte# 0.52 X10^3/uL; Monocyte% 8.7 % (0-10); NRBC Flagged by Analyzer 0 % (0-5); Neutrophil # 2.96 X10^3/uL (2.7-7.7); Neutrophil % 49.4 % (47-70); Platelet Count 268 K/mm3 (150-450); RBC Distribution Width CV 12.6 % (11.6-14.6); RBC Distribution Width SD 46.1 fl (35.1-43.9)
[2020-11-13 15:06] LABS: Color, Urine Straw (Yellow); Glucose, Dipstick Normal (Normal); Ketone-Dipstick Negative (Negative); Leukocyte Esterase-Dipstick Negative /ul (Negative); Nitrite-Dipstick Negative (Negative); Occult Blood-Urine Negative /ul (Negative); Protein-Dipstick Negative (Negative); Specific Gravity, Urine 1.005 (1.002-1.030); Urine Bilirubin Dipstick Negative (Negative); Urine Clarity Clear (Clear); Urine Urobilinogen Normal (Normal); Urine pH 6.5 (5.0 - 8.0)
[2020-11-13 15:11] LABS: PTHIN 55.1 pg/mL (18.4-80.1)
[2020-11-13 15:12] LABS: Protein, Urine (Random) 6.1 mg/dL (<11.9); Protein:Creat Ratio 335 mg/g CRE (0-200)
[2020-11-13 15:14] LABS: Vitamin D,25 Hydroxy 67.1 ng/mL
[2020-11-13 15:21] LABS: Cholesterol 211 mg/dL (200); High Density Lipoprotein 65 mg/dL; Magnesium 2.3 mg/dL (1.6-2.6); Phosphorus 3.2 mg/dL (2.5-4.9); T4 Free Direct 1.03 ng/dL (0.76-1.46); Thyroid Stim Hormone (TSH) 2.36 uIU/mL (0.358-3.74); Triglycerides 152 mg/dL; Very Low Density Lipoprotein 30 mg/dL (5-40)
[2020-11-14 08:27] LABS: ALB/GLOB Ratio 1.1 RATIO (0.9-2.4); AST(SGOT) 22 U/L (15-37); Alanine Aminotransfer ALT/SGPT 24 U/L (13-56); Albumin, Serum 3.9 g/dL (3.2-5.0); Alkaline Phosphatase 66 U/L (45-117); Anion Gap 6 (5-15); BUN 16 mg/dL (7-18); BUN/Creat Ratio 18.6 RATIO (10-20); Calcium,Total 9.1 mg/dL (8.5-10.1); Chloride 107 mmol/L (98-107); Creatinine, Serum 0.86 mg/dL (0.55-1.02); EST Glomerular Filtration Rate 70 mL/min (>60); Est Glom Filt Rate - Afr Amer 85 mL/min (>60); Globulin 3.4 g/dL (2.2-4.2); Glucose 86 mg/dL (74-106); Potassium 4.1 mmol/L (3.5-5.1); Protein, Total 7.3 g/dL (6.4-8.2); Sodium Level 140 mmol/L (136-145)
== END ==
PROVIDERS: PCP Family Medicine; Referring Provider Family Medicine; Visit Provider Family Medicine
DX: E03.9 Hypothyroidism, unspecified (principal); N18.30 Chronic kidney disease, stage 3 unspecified; I47.1 Supraventricular tachycardia; E78.00 Pure hypercholesterolemia, unspecified
CPT/HCPCS: 36415; 80053; 80061; 81001; 82306; 82570; 83735; 83970; 84100; 84156; 84439; 84443; 85025

== ENCOUNTER → 2020-11-27 09:21 | Outpatient (CLI) | payer MEDICARE, SELFPAY ==
--- NOTE | 2020-11-27 09:27 | BD_ITS ---
STUDY: DUAL ENERGY X-RAY ABSORPTIOMETRY / DXA REASON FOR EXAM: Female, 65 years old. 627.8Menopausal postmenopausalBONE DENSITY REASON FOR EXAM TECHNIQUE: Bone Mineral Density (BMD) measurements of lumbar spine and bilateral hips were obtained. COMPARISON: None. FINDINGS: Lumbar Spine (L1-L4): g/cm2 (0.974) / T-score (-0.7) / Z-score (1.1) Findings are suggestive of normal bone density with a low fracture risk. Left Femur Total: g/cm2 (0.964) / T-score (0.2) / Z-score (1.4) Left Femoral Neck: g/cm2 (0.882) / T-score (0.3) / Z-score (1.8) Right Femur Total: g/cm2 (0.894) / T-score (-0.4) / Z-score (0.9) Right Femoral Neck: g/cm2 (0.801) / T-score (-0.4) / Z-score (1.1) BD/Dexa Bone Density Study IMPRESSION: The patient is considered normal as outlined below according to World [employer] Organization (WHO) criteria with a low fracture risk. Reference Information: The T-score is the number of standard deviations above or below the standard which is normal for young adults at their peak bone mineral density. The World Health Organization (WHO) interprets the T-scores as follows: Above -1 Normal bone density Between -1 and -2.5 Osteopenia Equal to / or below -2.5 Osteoporosis As a practical clinical guideline, osteopenia may be graded as follows: Mild -1 through -1.5 Moderate -1.6 through -2.0 Severe -2.1 through -2.4 The Z-score is the number of standard deviations above or below age-matched controls. A Z-score of less than -1.5 would be considered abnormal. References: 1. NIH Osteoporosis and Related Bone Diseases www osteo.org 2. International Society for Clinical Densitometry www iscd.org 3. National Osteoporosis Foundation www nof.org Electronically Signed: Myron Ramachandran MD at 10:10 EDT , Service support ,
== END ==
PROVIDERS: PCP Family Medicine; Referring Provider Family Medicine; Visit Provider Family Medicine
DX: Z78.0 Asymptomatic menopausal state (principal)
CPT/HCPCS: 77080

== ENCOUNTER 2021-04-06 08:50 | Outpatient (CLI) | payer MEDICARE, SELFPAY ==
[2021-04-06 12:04] LABS: Absolute Lymphocyte Count 2.14 X10^3/uL (0.83-4.51); Absolute Neutrophil Count 3.1 X10^3/uL (2.0-7.7); Basophil# 0.04 X10^3/uL; Basophil% 0.7 % (0-1); Eosinophil# 0.32 X10^3/uL; Eosinophils% 5.2 % (0-5); Hemoglobin 12.9 g/dL (12.0-15.0); Lymphocyte # 2.14 X10^3/ul (0.83-4.51); Lymphocyte % 34.9 % (19-41); Mean Corp Hgb Conc 33.1 g/dL (32-36); Mean Corpuscular Hgb 32.6 pg (27.0-32.0); Mean Corpuscular Volume 98.5 fL (81-99); Mean Platelet Vol. 12.3 fl (6.2-12.0); Monocyte# 0.55 X10^3/uL; NRBC Flagged by Analyzer 0 % (0-5); Neutrophil # 3.08 X10^3/uL (2.7-7.7); Platelet Count 248 K/mm3 (150-450); RBC Distribution Width CV 12.8 % (11.6-14.6); RBC Distribution Width SD 46.6 fl (35.1-43.9); Red Blood Count 3.96 M/mm3 (4.2-5.4); White Blood Count 6.1 K/mm3 (4.4-11.0)
[2021-04-06 14:17] LABS: ALB/GLOB Ratio 1.2 RATIO (0.9-2.4); AST(SGOT) 17 U/L (15-37); Alanine Aminotransfer ALT/SGPT 22 U/L (13-56); Albumin, Serum 3.9 g/dL (3.2-5.0); Alkaline Phosphatase 70 U/L (45-117); Anion Gap 8 (5-15); BUN 15 mg/dL (7-18); BUN/Creat Ratio 15.7 RATIO (10-20); Calcium,Total 9.2 mg/dL (8.5-10.1); Chloride 105 mmol/L (98-107); Cholesterol 201 mg/dL (200); Creatinine, Serum 0.95 mg/dL (0.55-1.02); EST Glomerular Filtration Rate 62 mL/min (>60); Est Glom Filt Rate - Afr Amer 75 mL/min (>60); Globulin 3.2 g/dL (2.2-4.2); Glucose 93 mg/dL (74-106); High Density Lipoprotein 65 mg/dL; Potassium 4.3 mmol/L (3.5-5.1); Protein, Total 7.1 g/dL (6.4-8.2); Sodium Level 141 mmol/L (136-145); T4 Free Direct 1.09 ng/dL (0.76-1.46); Thyroid Stim Hormone (TSH) 2.28 uIU/mL (0.358-3.74); Triglycerides 109 mg/dL; Very Low Density Lipoprotein 22 mg/dL (5-40)
== END 2021-04-06 23:59 | disposition home or self-care (01) ==
LOC: MFPLAB 08:53
PROVIDERS: PCP Family Medicine; Visit Provider Family Medicine
DX: E03.9 Hypothyroidism, unspecified (principal); E78.00 Pure hypercholesterolemia, unspecified
CPT/HCPCS: 36415; 80053; 80061; 84439; 84443; 85025

== ENCOUNTER 2021-04-08 08:44 | Outpatient (CLI) | payer MEDICARE, SELFPAY ==
[2021-04-08 11:05] LABS: Vitamin B12 492 pg/mL (211-911)
== END 2021-04-08 23:59 | disposition home or self-care (01) ==
LOC: MFPLAB 08:44
PROVIDERS: PCP Family Medicine; Referring Provider Family Medicine; Visit Provider Family Medicine
DX: R41.3 Other amnesia (principal)
CPT/HCPCS: 36415; 82607

== ENCOUNTER → 2021-06-15 | Outpatient (CLI) | payer MEDICARE, SELFPAY ==
[2021-06-15 10:08] LABS: Hematocrit 39.6 % (37-47); Hemoglobin 12.8 g/dL (12.0-15.0); Mean Corp Hgb Conc 32.3 g/dL (32-36); Mean Corpuscular Hgb 31.5 pg (27.0-32.0); Mean Corpuscular Volume 97.5 fL (81-99); Mean Platelet Vol. 11.6 fl (6.2-12.0); Platelet Count 261 K/mm3 (150-450); RBC Distribution Width CV 12.6 % (11.6-14.6); Red Blood Count 4.06 M/mm3 (4.2-5.4); White Blood Count 5.4 K/mm3 (4.4-11.0)
[2021-06-15 10:53] LABS: Anion Gap 4 (5-15); BUN 20 mg/dL (7-18); BUN/Creat Ratio 14.2 RATIO (10-20); Calcium,Total 9.1 mg/dL (8.5-10.1); Chloride 106 mmol/L (98-107); Creatinine, Serum 1.41 mg/dL (0.55-1.02); EST Glomerular Filtration Rate 40 mL/min (>60); Est Glom Filt Rate - Afr Amer 48 mL/min (>60); Glucose 117 mg/dL (74-106); Potassium 4.4 mmol/L (3.5-5.1); Sodium Level 139 mmol/L (136-145)
== END | disposition home or self-care (01) ==
LOC: LAB 09:41
PROVIDERS: PCP Family Medicine; Referring Provider Internal Medicine Cardiovascular Disease; Visit Provider Internal Medicine Cardiovascular Disease
DX: R06.09 Other forms of dyspnea (principal); I47.1 Supraventricular tachycardia; I49.8 Other specified cardiac arrhythmias
CPT/HCPCS: 36415; 80048; 85027

== ENCOUNTER → 2021-07-07 | Outpatient (CLI) | payer MEDICARE, SELFPAY ==
--- NOTE | 2021-07-07 06:15 | ECHOD_ITS ---
Reason For Study: SOB Procedure This was a 2D Doppler, Color Flow transthoracic echocardiogram. The exam was of adequate technical quality. Exam performed in department. Left Ventricle Normal LV size. Left ventricular systolic function is normal. The estimated ejection fraction is 65 %. Diastolic function is indeterminate. No regional wall motion abnormalities noted. Right Ventricle Normal RV size. Normal systolic function. Atria The left atrium is mildly enlarged. Normal right atrium. No doppler evidence for ASD. Mitral Valve There is no mitral annular calcification. Normal mitral valve. Mild-Moderate (1-2+) mitral valve insufficiency. Tricuspid Valve Normal tricuspid valve. Mild tricuspid valve insufficiency. Right ventricular systolic pressure estimated to be 30 mmHg. Aortic Valve Trisinus/trileaflet aortic valve. Mild diffuse aortic valve thickening. Trivial aortic valve insufficiency. Pulmonic Valve The pulmonic valve is not well visualized. Great Vessels Normal sized aortic root. Pericardium/Pleural No pericardial effusion. MMode/2D Measurements & Calculations LVIDd: 4.2 cm IVSd: 0.99 cm Ao root diam: 3.0 cm LVIDs: 2.1 cm LVPWd: 1.2 cm RVDd: 3.6 cm FS: 50.8 % LAV(MOD-bp): 72.6 ml LVAd ap4: 29.2 cm2 SV(MOD-sp4): 59.6 ml LAV(MOD-bp) Indexed: 36.9 ml/m2 LVLd ap4: 7.5 cm LAV(MOD-sp2): 80.1 ml EDV(MOD-sp4): 93.5 ml LAV(MOD-sp4): 57.0 ml EDV(sp4-el): 96.5 ml LVAs ap4: 14.4 cm2 LVLs ap4: 5.4 cm ESV(MOD-sp4): 33.9 ml ESV(sp4-el): 32.8 ml EF(MOD-sp4): 63.7 % EF(sp4-el): 66.0 % SV(sp4-el): 63.7 ml LA A4 area: 20.2 cm2 LA dimension(2D): 3.7 cm RA A4 area: 17.1 cm2 Doppler Measurements & Calculations MV E max marco a: 91.5 cm/sec Lat Peak E' Marco A: 9.2 cm/sec Med Peak E' Marco A: 7.6 cm/sec MV A max marco a: 65.9 cm/sec E/E' lat: 9.9 E/E' med: 12.1 MV E/A: 1.4 Ao V2 max: 153.0 cm/sec AI max marco a: 466.5 cm/sec LV V1 max: 99.0 cm/sec Ao max P.4 mmHg AI max P.0 mmHg LV V1 max P.9 mmHg AI dec slope: 374.8 cm/sec2 AI P1/2t: 364.6 msec MR max marco a: 535.8 cm/sec PA V2 max: 125.4 cm/sec TR max marco a: 261.4 cm/sec MR max P.8 mmHg TR max P.3 mmHg MR mean marc oa: 416.3 cm/sec MR mean P.4 mmHg MR VTI: 221.1 cm ECHO/Echo Complete Interpretation Summary Left ventricular systolic function is normal. The estimated ejection fraction is 65 %. The left atrium is mildly enlarged. Mild-Moderate (1-2+) mitral valve insufficiency. Mild tricuspid valve insufficiency. Mild diffuse aortic valve thickening. Trivial aortic valve insufficiency. Right ventricular systolic pressure estimated to be 30 mmHg. Diastolic function is indeterminate. Ordering Physician: Ramiro Salas Referring Physician: Deon Mera Performed By: Mami Quinones RCS
--- NOTE | 2021-07-07 19:48 | STRESSREP ---
Stress Test Report Date: 07-07-2021 Procedure: Exercise tolerance test/imaging study Indications: Shortness of breath/dyspnea on exertion; cardiac dysrhythmia; hyperlipidemia; hypertension Consent: Per the patient Procedure: The patient exercised on a Miguel protocol for 6 minutes and 35 completing Stage II and 35 seconds of Stage III achieving a peak heart rate of 130 bpm (84% predicted maximal heart rate) with a peak blood pressure 158/52 mmHg and a peak MET capacity of 8 METs. The baseline ECG demonstrated normal sinus rhythm; poor R wave progression. The peak exercise ECG demonstrated no obvious ECG changes. There were no cardiac dysrhythmias pretest, during exercise, or recovery. The functional capacity was considered average. There was no complaint of chest discomfort during exercise or recovery. The examination was discontinued secondary to dyspnea and fatigue. Impression: 1. Technically adequate (percent predicted maximal heart rate greater than 85%) exercise tolerance test 2. Peak exercise ECG with no obvious ECG changes 3. There were no cardiac dysrhythmias pretest, during exercise, or recovery 4. Nuclear images pending Myocardial perfusion imaging study: Technique: The patient was injected with 14.1 mCi of technetium 99m Cardiolite and subsequently rest SPECT Cardiolite nuclear imaging was obtained in the horizontal long, vertical long, and short axis views. The patient exercised on a Miguel protocol for 6 minutes and 35 completing Stage II and 35 seconds of Stage III achieving a peak heart rate of 130 bpm (84% predicted maximal heart rate) with a peak blood pressure 158/52 mmHg and a peak MET capacity of 8 METs. The patient was injected with 44.4 mCi of technetium 99m Cardiolite and subsequently stress SPECT Cardiolite nuclear imaging was obtained in the horizontal long, vertical long, and short axis views. A gated Cardiolite study at peak stress was obtained. Interpretation: Rest and stress SPECT Cardiolite nuclear imaging status post realignment and normalization demonstrates the appearance of relative uniform tracer uptake and myocardial perfusion appearing within normal limits. There is end systolic thickening and brightening. The gated Cardiolite study demonstrates myocardial thickening and inward wall motion. The reported LVEF is 73%. Impression: 1. Rest and stress SPECT Cardiolite nuclear imaging demonstrate relative uniform tracer uptake and myocardial perfusion appearing within normal limits. 2. The gated Cardiolite study reports an LVEF of 73%. This note was generated with [employer] software. It may contain incorrect words, spelling, and punctuation that were not noted in checking the note before signing.
== END | disposition home or self-care (01) ==
LOC: CVS 06:14
PROVIDERS: PCP Family Medicine; Visit Provider Internal Medicine Cardiovascular Disease
DX: R06.02 Shortness of breath (principal); I47.1 Supraventricular tachycardia; I36.1 Nonrheumatic tricuspid (valve) insufficiency; I34.0 Nonrheumatic mitral (valve) insufficiency; E78.00 Pure hypercholesterolemia, unspecified; I49.8 Other specified cardiac arrhythmias; Z51.81 Encounter for therapeutic drug level monitoring; Z79.899 Other long term (current) drug therapy
CPT/HCPCS: 78452; 93017; 93306; A9500; A4216

== ENCOUNTER → 2021-10-02 | Outpatient (CLI) | payer MEDICARE, SELFPAY ==
--- NOTE | 2021-10-02 09:07 | BI_ITS ---
MAMMOGRAPHY - BILATERAL SCREENING REASON FOR EXAM: Female, 66 years old. Routine annual screening examination. PERTINENT HISTORY: TECHNIQUE: Digital bilateral breast lydia (3D mammographic acquisition) in the CC and MLO projections. 2-D mediolateral oblique (MLO) and craniocaudad (CC) views of both breasts were obtained. CAD: Full Field Digital Mammography with Computer Added Detection was performed. COMPARISON: Screening mammogram from 09/16/2020, 07/24/2019. FINDINGS: Breast Composition: There are scattered areas of fibroglandular density. There are no dominant masses or suspicious calcifications. Stable benign-appearing bilateral axillary lymph nodes. No other significant abnormalities are identified. There has been no significant change since the prior study. BI/SCRN MAMM (CAD)W/LYDIA BILAT IMPRESSION: Stable bilateral screening mammogram. Yearly follow-up mammogram recommended. (A) ASSESSMENT CATEGORY: BIRADS Category 2: Benign. A letter regarding these results will be sent to the patient by the facility within 30 days. Approximately 10% of breast cancers are not detected by mammography. A normal mammogram should not delay biopsy of a clinically suspicious abnormality. Electronically Signed: Chris Llamas, at 14:17 EDT ,
== END | disposition home or self-care (01) ==
LOC: OPBI 09:06
PROVIDERS: PCP Family Medicine; Referring Provider Obstetrics & Gynecology; Visit Provider Obstetrics & Gynecology
DX: Z12.31 Encounter for screening mammogram for malignant neoplasm of breast (principal)
CPT/HCPCS: 77063; 77067

== ENCOUNTER → 2022-05-31 | Outpatient (CLI) | payer MEDICARE, SELFPAY ==
[2022-05-31 10:18] LABS: Thyroid Stim Hormone (TSH) 1.84 uIU/mL (0.358-3.74)
[2022-06-03 12:22] LABS: Absolute Lymphocyte Count 1.94 X10^3/uL (0.83-4.51); Absolute Neutrophil Count 3.7 X10^3/uL (2.0-7.7); Basophil# 0.04 X10^3/uL; Basophil% 0.6 % (0-1); Eosinophil# 0.31 X10^3/uL; Eosinophils% 4.8 % (0-5); Hematocrit 40.4 % (37-47); Lymphocyte # 1.94 X10^3/ul (0.83-4.51); Lymphocyte % 29.8 % (19-41); Mean Corp Hgb Conc 32.2 g/dL (32-36); Mean Corpuscular Hgb 31.9 pg (27.0-32.0); Mean Corpuscular Volume 99.3 fL (81-99); Mean Platelet Vol. 12.3 fl (6.2-12.0); Monocyte# 0.48 X10^3/uL; Monocyte% 7.4 % (0-10); NRBC Flagged by Analyzer 0 % (0-5); Neutrophil # 3.73 X10^3/uL (2.7-7.7); Neutrophil % 57.2 % (47-70); Platelet Count 251 K/mm3 (150-450); RBC Distribution Width CV 12.8 % (11.6-14.6); RBC Distribution Width SD 46.7 fl (35.1-43.9); Red Blood Count 4.07 M/mm3 (4.2-5.4); White Blood Count 6.5 K/mm3 (4.4-11.0)
[2022-06-03 12:51] LABS: AST(SGOT) 17 U/L (15-37); Alanine Aminotransfer ALT/SGPT 24 U/L (13-56); Albumin, Serum 3.6 g/dL (3.2-5.0); Alkaline Phosphatase 74 U/L (45-117); Anion Gap 5 (5-15); BUN 23 mg/dL (7-18); BUN/Creat Ratio 25.4 RATIO (10-20); Calcium,Total 9.5 mg/dL (8.5-10.1); Chloride 108 mmol/L (98-107); Cholesterol 192 mg/dL (200); EST Glomerular Filtration Rate 66 mL/min (>60); Est Glom Filt Rate - Afr Amer 80 mL/min (>60); Globulin 3.5 g/dL (2.2-4.2); Glucose 124 mg/dL (74-106); High Density Lipoprotein 59 mg/dL; Magnesium 2.1 mg/dL (1.6-2.6); Potassium 3.9 mmol/L (3.5-5.1); Protein, Total 7.1 g/dL (6.4-8.2); Sodium Level 140 mmol/L (136-145); T4 Free Direct 1.01 ng/dL (0.76-1.46); Triglycerides 104 mg/dL; Very Low Density Lipoprotein 21 mg/dL (5-40)
[2022-06-04 12:26] LABS: Hemoglobin A1c 6.2 % (3.8-5.6)
== END | disposition home or self-care (01) ==
LOC: MFPLAB 08:40
PROVIDERS: PCP Family Medicine; Visit Provider Nurse Practitioner Family
DX: I47.1 Supraventricular tachycardia (principal); E03.9 Hypothyroidism, unspecified; E78.00 Pure hypercholesterolemia, unspecified
CPT/HCPCS: 36415; 80053; 80061; 83036; 83735; 84439; 84443; 85025

== ENCOUNTER → 2022-10-27 | Outpatient (CLI) | payer MEDICARE, SELFPAY ==
--- NOTE | 2022-10-27 08:32 | BI_ITS ---
MAMMOGRAPHY - BILATERAL SCREENING REASON FOR EXAM: Female, 67 years old. Routine annual screening examination. PERTINENT HISTORY: Non-contributory. TECHNIQUE: Digital bilateral breast lydia (3D mammographic acquisition) in the CC and MLO projections. 2-D mediolateral oblique (MLO) and craniocaudad (CC) views of both breasts were obtained. CAD: Full Field Digital Mammography with Computer Added Detection was performed. COMPARISON: Comparison is made with prior study October 02, 2021 and September 16, 2020. FINDINGS: Breast Composition: There are scattered areas of fibroglandular density. There are no dominant masses or suspicious calcifications. Stable small benign-appearing bilateral axillary lymph nodes. No other significant abnormalities are identified. There has been no significant change since the prior study. BI/SCRN MAMM (CAD)W/LYDIA BILAT IMPRESSION: Stable bilateral screening mammogram. Yearly follow-up mammogram recommended. (A) ASSESSMENT CATEGORY: BIRADS Category 2: Benign. A letter regarding these results will be sent to the patient by the facility within 30 days. Approximately 10% of breast cancers are not detected by mammography. A normal mammogram should not delay biopsy of a clinically suspicious abnormality. [id number] Electronically Signed: Myron Ramachandran MD at 10:06 EDT ,
== END | disposition home or self-care (01) ==
LOC: OPBI 08:30
PROVIDERS: PCP Family Medicine; Referring Provider Obstetrics & Gynecology; Visit Provider Obstetrics & Gynecology
DX: Z12.31 Encounter for screening mammogram for malignant neoplasm of breast (principal)
CPT/HCPCS: 77063; 77067

== ENCOUNTER → 2022-12-02 | Outpatient (CLI) | payer MEDICARE, SELFPAY ==
[2022-12-02 10:08] LABS: Absolute Neutrophil Count 2.6 X10^3/uL (2.0-7.7); Basophil# 0.05 X10^3/uL; Basophil% 0.9 % (0-1); Eosinophil# 0.37 X10^3/uL; Eosinophils% 6.8 % (0-5); Hematocrit 39.4 % (37-47); Hemoglobin 12.8 g/dL (12.0-15.0); Lymphocyte % 36.6 % (19-41); Mean Corp Hgb Conc 32.5 g/dL (32-36); Mean Corpuscular Hgb 32.4 pg (27.0-32.0); Mean Corpuscular Volume 99.7 fL (81-99); Mean Platelet Vol. 11.8 fl (6.2-12.0); Monocyte# 0.45 X10^3/uL; Monocyte% 8.2 % (0-10); NRBC Flagged by Analyzer 0 % (0-5); Neutrophil # 2.59 X10^3/uL (2.7-7.7); Neutrophil % 47.3 % (47-70); Platelet Count 267 K/mm3 (150-450); RBC Distribution Width CV 12.6 % (11.6-14.6); RBC Distribution Width SD 46.3 fl (35.1-43.9); Red Blood Count 3.95 M/mm3 (4.2-5.4); White Blood Count 5.5 K/mm3 (4.4-11.0)
[2022-12-02 11:05] LABS: ALB/GLOB Ratio 1.1 RATIO (0.9-2.4); AST(SGOT) 15 U/L (15-37); Alanine Aminotransfer ALT/SGPT 26 U/L (13-56); Albumin, Serum 3.6 g/dL (3.2-5.0); Alkaline Phosphatase 68 U/L (45-117); Anion Gap 5 (5-15); BUN 27 mg/dL (7-18); BUN/Creat Ratio 29.4 RATIO (10-20); Calcium,Total 8.9 mg/dL (8.5-10.1); Chloride 107 mmol/L (98-107); Cholesterol 191 mg/dL (200); Creatinine, Serum 0.92 mg/dL (0.55-1.02); EST Glomerular Filtration Rate 65 mL/min (>60); Est Glom Filt Rate - Afr Amer 78 mL/min (>60); Globulin 3.2 g/dL (2.2-4.2); Glucose 98 mg/dL (74-106); High Density Lipoprotein 72 mg/dL; Magnesium 2.3 mg/dL (1.6-2.6); Potassium 4.2 mmol/L (3.5-5.1); Protein, Total 6.8 g/dL (6.4-8.2); Sodium Level 139 mmol/L (136-145); T4 Free Direct 1.06 ng/dL (0.76-1.46); Thyroid Stim Hormone (TSH) 1.38 uIU/mL (0.358-3.74); Triglycerides 62 mg/dL; Very Low Density Lipoprotein 12 mg/dL (5-40)
== END | disposition home or self-care (01) ==
LOC: MFPLAB 08:14
PROVIDERS: PCP Family Medicine; Visit Provider Family Medicine
DX: I47.10 Supraventricular tachycardia, unspecified (principal); E78.00 Pure hypercholesterolemia, unspecified; E03.9 Hypothyroidism, unspecified
CPT/HCPCS: 36415; 80053; 80061; 83735; 84439; 84443; 85025

== ENCOUNTER → 2023-09-07 | Outpatient (CLI) | payer MEDICARE, SELFPAY ==
[2023-09-07 12:33] LABS: Absolute Lymphocyte Count 1.96 X10^3/uL (0.83-4.51); Absolute Neutrophil Count 2.3 X10^3/uL (2.0-7.7); Basophil# 0.05 X10^3/uL; Basophil% 0.9 % (0-1); Eosinophil# 0.57 X10^3/uL; Eosinophils% 10.6 % (0-5); Hematocrit 39.2 % (37-47); Hemoglobin 12.8 g/dL (12.0-15.0); Lymphocyte # 1.96 X10^3/ul (0.83-4.51); Lymphocyte % 36.4 % (19-41); Mean Corp Hgb Conc 32.7 g/dL (32-36); Mean Corpuscular Hgb 31.7 pg (27.0-32.0); Mean Platelet Vol. 11.4 fl (6.2-12.0); Monocyte# 0.53 X10^3/uL; Monocyte% 9.8 % (0-10); NRBC Flagged by Analyzer 0 % (0-5); Neutrophil # 2.28 X10^3/uL (2.7-7.7); Neutrophil % 42.3 % (47-70); Platelet Count 260 K/mm3 (150-450); RBC Distribution Width CV 12.5 % (11.6-14.6); RBC Distribution Width SD 44.7 fl (35.1-43.9); Red Blood Count 4.04 M/mm3 (4.2-5.4); White Blood Count 5.4 K/mm3 (4.4-11.0)
[2023-09-07 12:47] LABS: AST(SGOT) 17 U/L (15-37); Alanine Aminotransfer ALT/SGPT 24 U/L (13-56); Albumin, Serum 3.6 g/dL (3.2-5.0); Alkaline Phosphatase 75 U/L (45-117); Anion Gap 4 (5-15); BUN 23 mg/dL (7-18); BUN/Creat Ratio 23.4 RATIO (10-20); Calcium,Total 9.3 mg/dL (8.5-10.1); Chloride 107 mmol/L (98-107); Creatinine, Serum 0.98 mg/dL (0.55-1.02); EST Glomerular Filtration Rate 60 mL/min (>60); Est Glom Filt Rate - Afr Amer 72 mL/min (>60); Globulin 3.5 g/dL (2.2-4.2); Glucose 74 mg/dL (74-106); Potassium 3.8 mmol/L (3.5-5.1); Protein, Total 7.1 g/dL (6.4-8.2); Sodium Level 142 mmol/L (136-145); Thyroid Stim Hormone (TSH) 1.78 uIU/mL (0.358-3.74)
[2023-09-07 13:24] LABS: Hemoglobin A1c 5.8 % (3.8-5.6)
[2023-09-07 14:45] LABS: Vitamin B12 942 pg/mL (211-911)
== END | disposition home or self-care (01) ==
LOC: BIMLAB 11:26
PROVIDERS: PCP Internal Medicine; Referring Provider Internal Medicine; Visit Provider Internal Medicine
DX: E03.9 Hypothyroidism, unspecified (principal); E53.8 Deficiency of other specified B group vitamins; R73.03 Prediabetes
CPT/HCPCS: 36415; 80053; 82607; 83036; 84443; 85025

== ENCOUNTER → 2023-11-07 | Outpatient (CLI) | payer MEDICARE, SELFPAY ==
--- NOTE | 2023-11-07 09:06 | BI_ITS ---
MAMMOGRAPHY - BILATERAL SCREENING REASON FOR EXAM: Female, 68 years old. Routine annual screening examination. PERTINENT HISTORY: Non-contributory. TECHNIQUE: Digital bilateral breast lydia (3D mammographic acquisition) in the CC and MLO projections. 2-D mediolateral oblique (MLO) and craniocaudad (CC) views of both breasts were obtained. CAD: Full Field Digital Mammography with Computer Added Detection was performed. COMPARISON: Comparison is made with prior study October 27, 2022 and October 02, 2021. FINDINGS: Breast Composition: There are scattered areas of fibroglandular density. There are no dominant masses or suspicious calcifications. Stable small benign-appearing bilateral axillary lymph nodes. No other significant abnormalities are identified. There has been no significant change since the prior study. BI/SCRN MAMM (CAD)W/LYDIA BILAT IMPRESSION: Stable bilateral screening mammogram. Yearly follow-up mammogram recommended. (A) ASSESSMENT CATEGORY: BIRADS Category 2: Benign. A letter regarding these results will be sent to the patient by the facility within 30 days. Approximately 10% of breast cancers are not detected by mammography. A normal mammogram should not delay biopsy of a clinically suspicious abnormality. [id number] Electronically Signed: Myron Ramachandran MD at 10:18 EDT ,
[2023-11-10 09:10] LABS: HPV APTIMA, High Risk Negative (Negative)
== END | disposition home or self-care (01) ==
PROVIDERS: PCP Internal Medicine; Referring Provider Obstetrics & Gynecology; Visit Provider Obstetrics & Gynecology
DX: Z12.31 Encounter for screening mammogram for malignant neoplasm of breast (principal); Z12.4 Encounter for screening for malignant neoplasm of cervix
CPT/HCPCS: 77063; 77067; 87624; 88175; G0145

== ENCOUNTER → 2023-11-22 | Outpatient (CLI) | payer MEDICARE, SELFPAY ==
--- NOTE | 2023-11-22 09:19 | US_ITS ---
STUDY: ULTRASOUND BREAST - RIGHT REASON FOR EXAM: Female, 68 years old. Palpable lump in the right breast. TECHNIQUE: Axial and longitudinal images of the RIGHT breast were performed with a high resolution ultrasound transducer. # OF IMAGES: 12 COMPARISON: Comparison is made with prior study November 07, 2023. FINDINGS: RIGHT Breast: The upper aspect of the right breast was examined with ultrasound. No sonographic abnormality is seen. US/Breast Limited Unilateral IMPRESSION: No sonographic abnormality is seen. ASSESSMENT CATEGORY: BIRADS Category 1: Negative. A letter regarding these results will be sent to the patient by the facility within 30 days. Electronically Signed: Myron Ramachandran MD at 11:01 EDT ,
== END | disposition home or self-care (01) ==
PROVIDERS: PCP Internal Medicine; Referring Provider Obstetrics & Gynecology; Visit Provider Obstetrics & Gynecology
DX: R92.8 Other abnormal and inconclusive findings on diagnostic imaging of breast (principal); N63.0 Unspecified lump in unspecified breast
CPT/HCPCS: 76642

== ENCOUNTER 2024-03-07 05:49 | Day surgery (SDC) | payer MEDICARE, SELFPAY ==
--- NOTE | 2024-03-06 16:02 | PAT.ANE_ITS ---
Pre-Assessment Diagnosis/Proposed Procedure Planned Operative Procedure(s): COLONOSCOPY Anesthesia History Anesthesia History - director of digital platforms: Anesthesia History - director of digital platforms Hx Hospitalization No 03/06/24 15:24 Any Problems With Anesthesia No 03/06/24 15:24 Cholinesterase deficiency No 03/06/24 15:24 You/Your Family Experience No 03/06/24 15:24 fever (hyperthermia) with Relationship Recent Exposure to Contagious No 08/07/19 06:36 Disease Does patient have nerve No 03/06/24 15:24 stimulator Patient instructed to have device shut off --Does patient have Pacemaker or ICD? When Was Last Pacemaker Check QUESTION #4 FULL TEXT: You/Your Family Experience fever (hyperthermia) with Anesthesia Last Oral Intake Last Oral intake: Last Oral Intake NPO since Meds taken in AM with sips of water? Meds patient instructed to take am of surgery PONV PONV - director of digital platforms: PONV - director of digital platforms Female Yes 03/06/24 15:24 HX of Motion Sickness No 03/06/24 15:24 HX of N/V After Surgery No 03/06/24 15:24 Non-Smoker Yes 03/06/24 15:24 Duration of Surgery greater No 03/06/24 15:24 than 60 minutes Number of Risk Factors 2 03/06/24 15:24 PONV Score Moderate Risk 03/06/24 15:24 Height & Weight Height & Weight: Anesthesia: Height & Weight Height 5 ft 7 in 11/22/23 10:24 Respiratory Assessment Respiratory Assessment - director of digital platforms: Respiratory Tract Infection Hx - director of digital platforms Hx Respiratory Tract Infection No 03/06/24 15:24 STOP Sleep Apnea STOP Sleep Apnea - director of digital platforms: STOP Sleep Apnea - director of digital platforms Hx Hypertension No 03/06/24 15:24 Hx Sleep Apnea No 03/06/24 15:24 CPAP BIPAP Do you snore loudly (louder No 03/06/24 15:24 than talking or can be heard Do you often feel tired/ No 03/06/24 15:24 fatigued/ sleepy during daytime? Has anyone observed you stop No 03/06/24 15:24 breathing during sleep? STOP Results Negative 03/06/24 15:24 QUESTION #5 FULL TEXT : Do you snore loudly (louder than talking or can be heard through closed doors)? Tobacco Use History Tobacco Use History - director of digital platforms: Tobacco Use History - director of digital platforms Tobacco Use Smoking Status Never smoker 03/06/24 15:24 Hx Tobacco Use No 03/06/24 15:24 Years Smoking Packs Smoked per Day Smoking Cessation Date was within the last 15 years Hx Smoking Cessation Date Hx Smoking Cessation Counseling Hematologic Medial History Hematologic Hx - director of digital platforms: Hematologic Medical Hx - last inserter Hx of Blood Transfusion No 03/06/24 15:24 Hx of Transfusion in last 3 No 03/06/24 15:24 Months Date of Last Transfusion (if within last 3 months) Ever experience any problems No 03/06/24 15:24 with transfusion(s)? Specify any problems Hx of Preganancy in last 3 No 03/06/24 15:24 Months Nurse Filling Out Transfusion VCHRISTIN 03/06/24 15:24 & Questions: Date: 03/06/24 03/06/24 15:24 Time: 15:25 03/06/24 15:24 Patient unable to answer at this time (ie. confused, unrespo /Reproduction History /Reproductive History - director of digital platforms: /Reproductive Hx- director of digital platforms Hx Now No 03/06/24 15:24 Gestational Age (in weeks): EDC: Hx Hx Para Hx Section SAB No 03/06/24 15:24 PFS Medical History (Updated 03/06/24 @ 15:24 by Linda Brown) Wears glasses Post-menopausal Cancer Depression Thyroid disease Arthritis Leg cramps History of Holter monitoring History of echocardiogram History of stress test Cardiology follow-up encounter History of irregular heartbeat Positive fecal occult blood test Colon cancer screening Anxiety and depression Vitamin B12 deficiency Borderline type 2 diabetes mellitus Rhomboid muscle pain Scapular dysfunction Right shoulder pain Iliotibial band syndrome, left leg Pes anserinus bursitis of left knee Osteoarthritis of left knee Left knee pain Encounter for monitoring flecainide therapy Strain of foot, left Left ankle sprain Incomplete uterovaginal prolapse Bladder pain Bloating Colitis Non-rheumatic tricuspid valve insufficiency Non-rheumatic mitral regurgitation Pure hypercholesterolemia Diarrhea Cardiac dysrhythmia Near syncope Narrow complex tachycardia Hypercholesterolemia Hypothyroidism Home Medications ?Medication ?Instructions ?Recorded ?Last Taken ?Type calcium 315 mg (as 2 tab PO BID supplement 05/28/19 Unknown History citrate)-vitamin D3 6.25 mcg (250 unit) tablet cholecalciferol (vitamin D3) 125 125 mcg PO DAILY 12/25/20 Unknown History mcg (5,000 unit) tablet vitamin B complex 1 cap PO DAILY 09/07/23 Unknown History magnesium 200 mg tablet 240 mg PO BID 11/22/23 Unknown History metoprolol succinate 25 mg 25 mg PO QDAY #90 tabs 11/22/23 Unknown Rx tablet,extended release 24 hr (Toprol XL) levothyroxine 100 mcg tablet 100 mcg PO DAILY #90 tabs 12/09/23 Unknown Rx rosuvastatin 5 mg tablet 5 mg PO DAILY #90 tabs 12/09/23 Unknown Rx [place]'s wort 300 mg capsule 600 mg PO DAILY Postive mood 01/11/24 Unknown History Allergy/AdvReac Type Severity Reaction Status Date / Time No Known Allergies Allergy Verified 03/06/24 15:14 Family History Mother Heart disease Hypertension Diabetes Father Heart disease Hypertension Diabetes Brother Lymphoma Surgical History (Updated 03/06/24 @ 15:24 by Linda Brown) Hx of colonoscopy Skin cancer H/O tubal ligation Heel spur Social History Smoking Status: Never smoker alcohol intake: current alcohol intake frequency: other Alcohol type: beer and wine details: social substance use type: does not use caffeine: Yes Type: coffee Number of servings: 2 what type of physical activity do you participate in: walking and weight training frequency: 5-6 times per week seatbelt use: always do you feel safe at home: Yes additional social history: - Rodo-Marti 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 Sinus rhythm. Left axis deviation. Left anterior fascicular block. Stress test pertinent findings: July 07, 2021. Ejection fraction 73%. Rest and stress nuclear imaging demonstrate uniform uptake and perfusion appearing within normal limits. Echo (EF%) pertinent findings: July 07, 2021. Ejection fraction 65%. Right ventricular systolic pressure is 30 mmHg. No aortic stenosis noted. Consult pertinent findings: November 22, 2023. Dr. Brush. 1. Narrow complex tachycardia-patient to continue her beta-blockers. No recurrence of tachycardia noted. Plan would be to discontinue the flecainide and continue on a long-acting beta-elvira. And obtain a Holter monitor at her next visit. Additional pertinent findings: Holter monitor performed on July 17, 2020 through July 21, 2020. Patient maintained normal sinus rhythm with periods of sinus arrhythmia. Occasional PACs were noted. Rare PVCs were noted. Patient kept a diary and noted dizziness and palpitations which occasionally correlated with the ectopy. Recommendation Anesthesia Recommendation Anesthesia recommendation: OPTIMIZED for anesthesia
[2024-03-07] VITALS (7 sets, daily range): BP systolic 119–128; BP diastolic 77–84; PULSE 74–95; RESP 16; TEMP 36.3–36.4; O2SAT 98–100; BMI 27.9
--- NOTE | 2024-03-07 06:43 | PCM.PRE.AN2 ---
ASA Classification* ASA Classification ASA Classification: 2 Assessment & Plan Anesthesia* Anesthesia Assessment Anesthesia Assessment: Discussed sedation and/or anesthesia options, risks, benefits, and alternatives with patient/parents/legal guardian/POA. Questions invited. The patient/parents/legal guardian/POA seems to understand and agrees to proceed with anesthesia plan. Reviewed the physical assessment, medical history, allergy history and patient home medications list prior to surgery/procedure/anesthetic and documented any changes. Performed airway and anesthesia risk assessments. Anesthesia Type Anesthesia Type: MAC Anesthesia Focused Assessment* Temperature: 97.5 F Pulse Rate: 85 Blood Pressure: 128/84 Respiratory Rate: 16 Pulse Ox: 100 Airway Assessment Mouth opens: >3 cm Mallampati Score: II Focused Labs Anesthesia Preop lab: CBC WBC 5.4 K/mm3 (4.4-11.0) 09/07/23 11:26 RBC 4.04 M/mm3 (4.2-5.4) L 09/07/23 11:26 Hgb 12.8 g/dL (12.0-15.0) 09/07/23 11:26 Hct 39.2 % (37-47) 09/07/23 11:26 Plt Count 260 K/mm3 (150-450) 09/07/23 11:26 CHEMISTRY Potassium 3.8 mmol/L (3.5-5.1) 09/07/23 11:26 Sodium 142 mmol/L (136-145) 09/07/23 11:26 Magnesium 2.3 mg/dL (1.6-2.6) 12/02/22 08:16 Phosphorus 3.2 mg/dL (2.5-4.9) 11/13/20 11:58 BUN 23 mg/dL (7-18) H 09/07/23 11:26 Creatinine 0.98 mg/dL (0.55-1.02) 09/07/23 11:26 Glucose 74 mg/dL (74-106) 09/07/23 11:26 TSH 1.78 uIU/mL (0.358-3.74) 09/07/23 11:26 COAG Pre-Assessment Diagnosis/Proposed Procedure Planned Operative Procedure(s): COLONOSCOPY Anesthesia History Anesthesia History - technician support engineer: Anesthesia History - technician support engineer Hx Hospitalization No 03/06/24 15:24 Any Problems With Anesthesia No 03/06/24 15:24 Cholinesterase deficiency No 03/06/24 15:24 You/Your Family Experience No 03/06/24 15:24 fever (hyperthermia) with Relationship Recent Exposure to Contagious No 03/07/24 06:18 Disease Does patient have nerve No 03/06/24 15:24 stimulator Patient instructed to have device shut off --Does patient have Pacemaker No 03/07/24 06:18 or ICD? When Was Last Pacemaker Check QUESTION #4 FULL TEXT: You/Your Family Experience fever (hyperthermia) with Anesthesia Last Oral Intake Last Oral intake: Last Oral Intake NPO since 03:00 03/07/24 06:18 Meds taken in AM with sips of Yes 03/07/24 06:18 water? Meds patient instructed to METOPROLOL 03/07/24 06:18 take am of surgery LEVOTHYROXINE PONV PONV - technician support engineer: PONV - technician support engineer Female Yes 03/06/24 15:24 HX of Motion Sickness No 03/06/24 15:24 HX of N/V After Surgery No 03/06/24 15:24 Non-Smoker Yes 03/06/24 15:24 Duration of Surgery greater No 03/06/24 15:24 than 60 minutes Number of Risk Factors 2 03/06/24 15:24 PONV Score Moderate Risk 03/06/24 15:24 Height & Weight Height & Weight: Anesthesia: Height & Weight Height 5 ft 7 in 03/07/24 06:18 Weight: 81 kg 03/07/24 06:18 Body Mass Index (BMI) 27.9 03/07/24 06:18 Respiratory Assessment Respiratory Assessment - technician support engineer: Respiratory Tract Infection Hx - technician support engineer Hx Respiratory Tract Infection No 03/06/24 15:24 STOP Sleep Apnea STOP Sleep Apnea - technician support engineer: STOP Sleep Apnea - technician support engineer Hx Hypertension No 03/06/24 15:24 Hx Sleep Apnea No 03/06/24 15:24 CPAP BIPAP Do you snore loudly (louder No 03/06/24 15:24 than talking or can be heard Do you often feel tired/ No 03/06/24 15:24 fatigued/ sleepy during daytime? Has anyone observed you stop No 03/06/24 15:24 breathing during sleep? STOP Results Negative 03/06/24 15:24 QUESTION #5 FULL TEXT : Do you snore loudly (louder than talking or can be heard through closed doors)? Tobacco Use History Tobacco Use History - technician support engineer: Tobacco Use History - technician support engineer Tobacco Use Smoking Status Never smoker 03/06/24 15:24 Hx Tobacco Use No 03/06/24 15:24 Years Smoking Packs Smoked per Day Smoking Cessation Date was within the last 15 years Hx Smoking Cessation Date Hx Smoking Cessation Counseling Hematologic Medial History Hematologic Hx - technician support engineer: Hematologic Medical Hx - steamfitter Hx of Blood Transfusion No 03/06/24 15:24 Hx of Transfusion in last 3 No 03/06/24 15:24 Months Date of Last Transfusion (if within last 3 months) Ever experience any problems No 03/06/24 15:24 with transfusion(s)? Specify any problems Hx of Preganancy in last 3 No 03/06/24 15:24 Months Nurse Filling Out Transfusion VCHRISTIN 03/06/24 15:24 & Questions: Date: 03/06/24 03/06/24 15:24 Time: 15:25 03/06/24 15:24 Patient unable to answer at this time (ie. confused, unrespo /Reproduction History /Reproductive History - technician support engineer: /Reproductive Hx- technician support engineer Hx Now No 03/06/24 15:24 Gestational Age (in weeks): EDC: Hx Hx Para Hx Section SAB No 03/06/24 15:24 PFSH Medical History Wears glasses Post-menopausal Cancer Depression Thyroid disease Arthritis Leg cramps History of Holter monitoring History of echocardiogram History of stress test Cardiology follow-up encounter History of irregular heartbeat Positive fecal occult blood test Colon cancer screening Anxiety and depression Vitamin B12 deficiency Borderline type 2 diabetes mellitus Rhomboid muscle pain Scapular dysfunction Right shoulder pain Iliotibial band syndrome, left leg Pes anserinus bursitis of left knee Osteoarthritis of left knee Left knee pain Encounter for monitoring flecainide therapy Strain of foot, left Left ankle sprain Incomplete uterovaginal prolapse Bladder pain Bloating Colitis Non-rheumatic tricuspid valve insufficiency Non-rheumatic mitral regurgitation Pure hypercholesterolemia Diarrhea Cardiac dysrhythmia Near syncope Narrow complex tachycardia Hypercholesterolemia Hypothyroidism Home Medications ?Medication ?Instructions ?Recorded ?Last Taken ?Type calcium 315 mg (as 2 tab PO BID supplement 05/28/19 03/06/24 History citrate)-vitamin D3 6.25 mcg (250 unit) tablet cholecalciferol (vitamin D3) 125 125 mcg PO DAILY 12/25/20 03/06/24 History mcg (5,000 unit) tablet vitamin B complex 1 cap PO DAILY 09/07/23 03/06/24 History magnesium 200 mg tablet 240 mg PO BID 11/22/23 03/06/24 History metoprolol succinate 25 mg 25 mg PO QDAY #90 tabs 11/22/23 03/07/24 Rx tablet,extended release 24 hr (Toprol XL) levothyroxine 100 mcg tablet 100 mcg PO DAILY #90 tabs 12/09/23 03/07/24 Rx rosuvastatin 5 mg tablet 5 mg PO DAILY #90 tabs 12/09/23 03/06/24 Rx [place]'s wort 300 mg capsule 600 mg PO DAILY Postive mood 01/11/24 03/06/24 History Allergy/AdvReac Type Severity Reaction Status Date / Time No Known Allergies Allergy Verified 03/07/24 06:12 Family History Mother Heart disease Hypertension Diabetes Father Heart disease Hypertension Diabetes Brother Lymphoma Surgical History Hx of colonoscopy Skin cancer H/O tubal ligation Heel spur Social History Smoking Status: Never smoker alcohol intake: current alcohol intake frequency: other Alcohol type: beer and wine details: social substance use type: does not use caffeine: Yes Type: coffee Number of servings: 2 what type of physical activity do you participate in: walking and weight training frequency: 5-6 times per week seatbelt use: always do you feel safe at home: Yes additional social history: - Rodo-Marti 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
--- NOTE | 2024-03-07 06:59 | PCM.HP.STD ---
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 Pt has a PMHx of hypothyroidism, diarrhea, mitral and tricuspid regurgitation, pelvic floor dysfunction and anxiety. She is here today after having a positive Cologuard test. Her PCP ordered a fecal occult blood test which was positive and then her OBGYN recommended a Cologuard. She has diarrhea about once a week if she drinks an extra cup of coffee. She does have a hx of diverticulosis. She does not see any blood in her stool. She denies abdominal pain, n/v, heartburn, constipation, weight loss, fever or melena. Colonoscopy 2019; - Non-thrombosed external hemorrhoids, non-thrombosed internal hemorrhoids and internal hemorrhoids that prolapse with straining, but spontaneously regress to the resting position (Grade II) found on digital rectal exam. - Normal mucosa: terminal ileum, biopsied - Diverticulosis in the sigmoid colon. Biopsied at site of suspected acute inflammation - Localized mild inflammation was found in the proximal sigmoid colon. Suspected acute diverticulitis Random colonic biopsies obtained throughout entire colon [facility] Medical History Wears glasses Post-menopausal Cancer Depression Thyroid disease Arthritis Leg cramps History of Holter monitoring History of echocardiogram History of stress test Cardiology follow-up encounter History of irregular heartbeat Positive fecal occult blood test Colon cancer screening Anxiety and depression Vitamin B12 deficiency Borderline type 2 diabetes mellitus Rhomboid muscle pain Scapular dysfunction Right shoulder pain Iliotibial band syndrome, left leg Pes anserinus bursitis of left knee Osteoarthritis of left knee Left knee pain Encounter for monitoring flecainide therapy Strain of foot, left Left ankle sprain Incomplete uterovaginal prolapse Bladder pain Bloating Colitis Non-rheumatic tricuspid valve insufficiency Non-rheumatic mitral regurgitation Pure hypercholesterolemia Diarrhea Cardiac dysrhythmia Near syncope Narrow complex tachycardia Hypercholesterolemia Hypothyroidism Home Medications ?Medication ?Instructions ?Recorded ?Last Taken ?Type calcium 315 mg (as 2 tab PO BID supplement 05/28/19 03/06/24 History citrate)-vitamin D3 6.25 mcg (250 unit) tablet cholecalciferol (vitamin D3) 125 125 mcg PO DAILY 12/25/20 03/06/24 History mcg (5,000 unit) tablet vitamin B complex 1 cap PO DAILY 09/07/23 03/06/24 History magnesium 200 mg tablet 240 mg PO BID 11/22/23 03/06/24 History metoprolol succinate 25 mg 25 mg PO QDAY #90 tabs 11/22/23 03/07/24 Rx tablet,extended release 24 hr (Toprol XL) levothyroxine 100 mcg tablet 100 mcg PO DAILY #90 tabs 12/09/23 03/07/24 Rx rosuvastatin 5 mg tablet 5 mg PO DAILY #90 tabs 12/09/23 03/06/24 Rx [place]'s wort 300 mg capsule 600 mg PO DAILY Postive mood 01/11/24 03/06/24 History Allergy/AdvReac Type Severity Reaction Status Date / Time No Known Allergies Allergy Verified 03/07/24 06:12 Family History Mother Heart disease Hypertension Diabetes Father Heart disease Hypertension Diabetes Brother Lymphoma Surgical History Hx of colonoscopy Skin cancer H/O tubal ligation Heel spur Social History Smoking Status: Never smoker alcohol intake: current alcohol intake frequency: other Alcohol type: beer and wine details: social substance use type: does not use caffeine: Yes Type: coffee Number of servings: 2 what type of physical activity do you participate in: walking and weight training frequency: 5-6 times per week seatbelt use: always do you feel safe at home: Yes additional social history: - Rodo-Marti 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 ROS Constitutional Constitutional: Denies fatigue, fever(s), poor appetite, weight gain or weight loss Gastrointestinal Gastrointestinal: Denies belching, bloating, change in bowel habits, change in stool character, chewing difficulty, coffee ground emesis, constipation, cramping, diarrhea, dyspepsia, dysphagia, early satiety, excessive flatus, fecal incontinence, heartburn, hematemesis, hematochezia, hemorrhoids, loose stools, melena, nausea, odynophagia, rectal bleeding, tenesmus, vomiting or weight changes Vital Signs Vital Signs Vital Signs: 03/07/24 06:18 03/07/24 06:18 03/07/24 06:43 Temperature 97.5 F L 97.5 F L Temperature Source Temporal Pulse Rate 85 85 Respiratory Rate 16 16 Respiratory Pattern Normal Blood Pressure 128/84 H 128/84 H Blood Pressure Mean 98 Blood Pressure Source Monitor Blood Pressure Position Sitting Blood Pressure Location Left Arm Pulse Ox 100 100 Oxygen Delivery Method Room Air Weight Weight: 178 lb 9.191 oz Body Mass Index (BMI) 27.9 Physical Exam Const alert, oriented x3, no apparent distress and healthy appearing General Appearance: cooperative GI normal to inspection, nondistended, normoactive bowel sounds, soft to palpation, non-tender and non-distended Percussion: normal to percussion Rectal Exam: deferred Assessment & Plan Assessment/Plan (1) Positive colorectal cancer screening using Cologuard test: PLAN: Assessment and Plan Assessment and Plan (1) Positive colorectal cancer screening using Cologuard test: Status: Acute Plan: This is a 68 yo female pt here today for establishment and consultation for colonoscopy. Pt recently had a FOBT+ and a positive Cologuard test. She has a hx of diverticulosis, diverticulitis and hemorrhoids. She denies all GI symptoms. Her last colonoscopy was in 2019 with no polyps. My recommendation was to get a colonoscopy. She is agreeable to this. Differential diagnosis includes hemorrhoidal bleeding, diverticular bleeding or malignancy. -Colonoscopy -f/u after procedure
--- NOTE | 2024-03-07 07:00 | COLBX_PTH ---
PATIENT: MARIN TRIANA LOC: EN U#:[id number] AGE/SX: 68/F ROOM: RE03/07/[address]: Dr. Randolph Allen DO : 1955 BED: DIS: 03/07/2024 SPEC #: [id number] RECD: 03/07/24 10:42 STATUS: TIANNA RECarmela #: [id number] WILLIE: 03/07/24 07:[address]: Randolph Allen DEPT: SURGICAL PATHOLOGY RECD BY: Tonya James ENTERED: 03/07/24 11:20 SP TYPE: COLON BX OT DR: Dr. Fortino Durán MD Tissues: Sigmoid colon biopsy Procedures: Surgery Specimen Level IV HEADER OPERATION: Colonoscopy, biopsy PRE-OP DIAGNOSIS: Positive colorectal cancer screening by Cologuard test TISSUE SUBMITTED: Sigmoid polyp biopsy MICROSCOPIC DIAGNOSIS Sigmoid polyp, biopsy: Hyperplastic polyp. [email or web address] 03/08/2024 MICROSCOPIC DESCRIPTION Slides are reviewed. GROSS DESCRIPTION Received in fixative is one container labeled with the patient's name and designated Sigmoid polyp biopsy. The specimen consists of one irregular fragment of light hurt soft tissue that measures 0.4 x 0.3 x 0.2 cm. The specimen is totally submitted in one cassette. 03/07/2024 TC:1 CPT:46200
--- NOTE | 2024-03-07 07:54 | OP.CCLET_ITS ---
03/07/2024 Fortino Durán MD [address] [place] [address] [place] [address] Re : Colonoscopy procedure for Carmen Dugan Dear Dr. Durán This procedure was performed on Thursday, March 07, 2024. My impressions and recommendations are as follows: Impressions : - Diverticulosis in the recto-sigmoid colon and in the sigmoid colon. - One 7 mm polyp in the sigmoid colon, removed with a jumbo cold forceps. Resected and retrieved. Recommendations : - Repeat colonoscopy in 5 years for surveillance. - Continue present medications. My findings are described in the full procedure note, which is enclosed. If I can be of further assistance, please feel free to contact me at . Sincerely, Randolph Allen, 03/07/2024 7:53:46 AM This report has been signed electronically.
--- NOTE | 2024-03-07 07:54 | OP.COLON_ITS ---
Patient Name: Carmen Dugan Procedure Date: 03/07/2024 7:31 AM Date of : 1955 Age: 68 Procedure: Colonoscopy Indications: Screening for colorectal malignant neoplasm Providers: Randolph Allen DO Referring MD: Randolph Allen DO Medicines: Monitored Anesthesia Care Patient Profile: This is a 68 year old female. Refer to note in patient chart for documentation of history and physical. Last Colonoscopy: more than 10 years ago. Complications: No immediate complications. Procedure: Pre-Anesthesia Assessment: - Prior to the procedure, a History and Physical was performed, and patient medications and allergies were reviewed. The patient is competent. The risks and benefits of the procedure and the sedation options and risks were discussed with the patient. All questions were answered and informed consent was obtained. Patient identification and proposed procedure were verified by the physician in the pre-procedure area. Mental Status Examination: alert and oriented. Airway Examination: normal oropharyngeal airway and neck mobility. Respiratory Examination: clear to auscultation. CV Examination: normal. Prophylactic Antibiotics: The patient does not require prophylactic antibiotics. Prior Anticoagulants: The patient has taken no anticoagulant or antiplatelet agents except for NSAID medication. ASA Grade Assessment: II - A patient with mild systemic disease. After reviewing the risks and benefits, the patient was deemed in satisfactory condition to undergo the procedure. The anesthesia plan was to use monitored anesthesia care (MAC). Immediately prior to administration of medications, the patient was re-assessed for adequacy to receive sedatives. The heart rate, respiratory rate, oxygen saturations, blood pressure, adequacy of pulmonary ventilation, and response to care were monitored throughout the procedure. The physical status of the patient was re-assessed after the procedure. After I obtained informed consent, the scope was passed under direct vision. Throughout the procedure, the patient's blood pressure, pulse, and oxygen saturations were monitored continuously. The Colonoscope was introduced through the anus and advanced to the cecum, identified by appendiceal orifice and ileocecal valve. The colonoscopy was performed without difficulty. The patient tolerated the procedure well. The quality of the bowel preparation was adequate. The ileocecal valve, appendiceal orifice, and rectum were photographed. Scope In: 7:40:38 AM Scope Withdrawal Time 0 hours 8 minutes 4 seconds Scope Out: 7:50:12 AM Total Procedure Duration Time 0 hours 9 minutes 34 seconds Findings: The perianal and digital rectal examinations were normal. A few small-mouthed diverticula were found in the recto-sigmoid colon and sigmoid colon. A 7 mm polyp was found in the sigmoid colon. The polyp was sessile. The polyp was removed with a jumbo cold forceps. Resection and retrieval were complete. Verification of patient identification for the specimen was done. Estimated blood loss was minimal. Impression: - Diverticulosis in the recto-sigmoid colon and in the sigmoid colon. - One 7 mm polyp in the sigmoid colon, removed with a jumbo cold forceps. Resected and retrieved. Recommendation: - Repeat colonoscopy in 5 years for surveillance. - Continue present medications. Procedure Code(s): --- Professional --- 50674, Colonoscopy, flexible; with biopsy, single or multiple CPT copyright 2021 [employer]. All rights reserved. The codes documented in this report are preliminary and upon aircraft delivery checker review may be revised to meet current compliance requirements. Randolph Allen DO 03/07/2024 7:53:46 AM This report has been signed electronically. Number of Addenda: 0 Note Initiated On: 03/07/2024 7:31 AM
--- NOTE | 2024-03-07 08:01 | PCM.POST.ANE ---
Anesthesia: Postop Eval I Current Vital Signs Temperature: 97.6 F Pulse Rate: 95 Blood Pressure: 121/81 Respiratory Rate: 16 Pulse Ox: 98 Oxygen Delivery Method: Room Air Assessment Airway patent: Yes Spontaneous unlabored respirations: Yes Mental status: Asleep nausea: No Vomiting: No Anesthesia Complication: No Fluid Hydration Crystalloid volume administer (ml): 40 Total IV fluid infused: 40 Progress Note Anesthesia document: Postop Eval 1 completed: Yes
--- NOTE | 2024-03-07 08:45 | PCM.POSTANE2 ---
Anesthesia Postop Eval I Sum Postop Eval Completion status Anesthesia document: Postop Eval 1 completed: Yes Anesthesia Postop Eval I Summary Anesthesia Postop Eval I Summary: Anesthesia Postop Eval I: Assessment Summary Airway patent Yes 03/07/24 08:03 [email or web address] Spontaneous unlabored Yes 03/07/24 08:03 [email or web address] respirations Mental status Asleep 03/07/24 08:03 [email or web address] nausea No 03/07/24 08:03 [email or web address] Vomiting No 03/07/24 08:03 [email or web address] Anesthesia Postop Eval I: Fluid Summary Crystalloid volume administer 40 03/07/24 08:03 [email or web address] (ml) Colloids volume administered ( ml) Blood Product volume administered (ml) Total IV fluid infused 40 03/07/24 08:03 [email or web address] Anesthesia Postop Eval I: Summary Notes Anesthesia Complication No 03/07/24 08:03 [email or web address] Anesthesia Complication Comment: Post-operative progress note Anesthesia: Postop Eval II Evaluation Mental status: Awake Pain Level: 0 nausea: No Vomiting: No
== END 2024-03-07 08:50 | disposition home or self-care (01) ==
LOC: EN 05:50 → AC 05:51
PROVIDERS: PCP Internal Medicine; Referring Provider Internal Medicine; Visit Provider Internal Medicine Gastroenterology
PROC: 0DJD8ZZ Inspection of Lower Intestinal Tract, Via Natural or Artificial Opening Endoscopic (ICD-10-PCS; CPT 45378; principal; 2024-03-07 06:55)
DX: Z12.11 Encounter for screening for malignant neoplasm of colon (principal); K57.30 Diverticulosis of large intestine without perforation or abscess without bleeding; E78.00 Pure hypercholesterolemia, unspecified; K63.5 Polyp of colon; E03.9 Hypothyroidism, unspecified; R19.5 Other fecal abnormalities; Z79.899 Other long term (current) drug therapy; Z79.890 Hormone replacement therapy
CPT/HCPCS: 45380

== ENCOUNTER → 2024-03-14 | Outpatient (CLI) | payer MEDICARE, SELFPAY ==
--- NOTE | 2024-03-14 10:55 | RAD_ITS ---
INDICATION: FALL, INJURY EXAMINATION/TECHNIQUE: X-RAY - LEFT XR Hand Min 3 Views 4 VIEWS COMPARISON: No relevant prior comparison study available FINDINGS: SOFT TISSUES: No soft tissue swelling or gas. No radiopaque foreign body. BONES/JOINTS: Oblique displaced fracture of the distal aspect of the fourth metacarpal. Normal alignment. Preservation of the joint space.. No sclerotic or destructive changes observed. RAD/Hand Min 3 Views IMPRESSION: Oblique displaced fracture of the fourth metacarpal. Electronically Signed: Jerod Treviño MD at 11:53 EST ,
== END | disposition home or self-care (01) ==
LOC: MTRAD 10:53
PROVIDERS: PCP Internal Medicine
DX: S60.222A Contusion of left hand, initial encounter (principal); S60.032A Contusion of left middle finger without damage to nail, initial encounter; M79.645 Pain in left finger(s); M79.642 Pain in left hand; X58.XXXA Exposure to other specified factors, initial encounter
CPT/HCPCS: 73130

== ENCOUNTER 2024-05-09 09:30 | Outpatient (RCR) | payer MEDICARE, SELFPAY ==
--- NOTE | 2024-04-04 12:18 | HP.OTEVAL ---
Patient's Visit Information Visit Information Visit Information: MARIN TRIANA is a 69 year old F, referred to Occupational Therapy by Dr. Suraj Yan DO, with a diagnosis of 4th metacarpal fx. left hand. Date of Evaluation: 04/04/24 Occupational Therapist: Dariana Lockhart OTR/Melissa, CHT Subjective Subjective: This 69 year old female was seen for OT eval with dx of left displaced fx of 4th MC bone. pt states DOI was on 2024. pt went on vacation and returned to have sx to repair her fx. Pt states DOS was on 03/28/24 ORIF of right 4th metacarpal. pt arrives today with orders for edema control and ROM. pt states she is right handed but feels not being able to use her left hand has limited her with all ADLs and IADLs at this time. Pain left hand: Current Pain Intensity: 4 Pain Intensity Range: 4 ROM Shoulder: right/left WNL Forearm: right/left WNL Wrist: right 60/60 left 50/50 MP: right RF 0/80 left 0/50 PIP: right RF 0/110 left 0/35 DIP: right 0/45 left 0/30 ROM Comments: pt demo the ability to straighten all digits- left hand limited with full functional ROM due to newly healing sturctures. Strength Strength Comments: will test later date Edema PIP: left RF 7.5 right 6.5 Other: slight swelling Quick DASH-Disab of Arm,Shoulder& Hand Quick DASH Score: 72.7250 Goals Goal:Daily scar massage when approriate: Yes Goal:ROM equal to unaffected hand: Yes Goal:Derrick Helper/Pinch strength at least 75% of unaffected hand: Yes Comment: will not initiate until week 6 or otherwise specified Goal:No pain with affected hand use: Yes Goal:PIP Circumferences equal to unaffected hand: Yes Goal:Full use of affected hand in daily activities including work: Yes Rehabilitation General Assessment: pt arrives 1 week s/p from ORIF of 4th metacarpal. pt is currently limited with use of left hand due to newly healing structures. Pt demo need for skilled OT services 1-2 x week for 6 weeks to assist pt in returning to her PLOF. pts order indicates ROM and edema therapy. Today therapist ed. pt on ROM of shoulder- elbow- forearm- wrist and soft gentle motion of digits- along with ed. on edema control. pt demo understanding and agrees to POC. Rehabilitation Potential: Good Anticipated Interventions Anticipated Interventions: A/AAROM/PROM, Strengthening, Edema Control, Scar Care, Modalities, Orthoses, Joint Protection/Energy Conservation, Ergonomic Education, Fine Motor Coord/Hector, Education re assistive Equipment, Education re Diagnosis and Home Program Visit Plan Frequency: 1-2x /Week Duration: 6 Weeks TEXT: Thank you for the opportunity to evaluate your patient. For Medicare and Medicare HMO plans, please review the plan of care and approve it. It will need to be FAXED BACK to us at [phone] for Medicare purposes. Please let me know if there are questions or concerns regarding this plan of care. Physician Signature: Date:
--- NOTE | 2024-09-19 14:50 | HP.OT.NRP ---
Patient Information Patient Information: MARIN TRAINA was seen in my office for initial evaluation on 04/04/24. The following Plan of Care was established for this patient: POC Established Initial Frequency: 1-2x /Week Initial Duration: 6 Weeks Plan: pt to return in 3 weeks if needed Anticipated Interventions Anticipated Interventions: A/AAROM/PROM, Strengthening, Edema Control, Scar Care, Modalities, Orthoses, Joint Protection/Energy Conservation, Ergonomic Education, Fine Motor Coord/Hector, Education re assistive Equipment, Education re Diagnosis and Home Program Last Seen Last Seen: This patient was last seen in our office 05/09/24. Pertinent comments regarding their Occupational therapy will appear below: no further apts have been scheduled and due to time lapse in services pt is d/c. At this point I will be discontinuing this patient from occupational therapy. I would be happy to see this patient again in the future if found appropriate by the physician. Thank you! Dariana Lockhart, OTR/L, CHT
== END 2024-05-09 19:00 | disposition home or self-care (01) ==
LOC: OT 09:30
PROVIDERS: PCP Internal Medicine; Referring Provider Student in an Organized Health Care Education/Training Program; Visit Provider Student in an Organized Health Care Education/Training Program
DX: S62.325D Displaced fracture of shaft of fourth metacarpal bone, left hand, subsequent encounter for fracture with routine healing (principal)
CPT/HCPCS: 97110; 97140; 97166; 97530

== ENCOUNTER → 2024-06-11 | Outpatient (CLI) | payer MEDICARE, SELFPAY ==
[2024-06-11 12:40] LABS: Absolute Lymphocyte Count 2.23 X10^3/uL (0.83-4.51); Basophil# 0.06 X10^3/uL; Eosinophils% 6.4 % (0-5); Hematocrit 37.9 % (37-47); Hemoglobin 12.8 g/dL (12.0-15.0); Lymphocyte # 2.23 X10^3/ul (0.83-4.51); Lymphocyte % 35.9 % (19-41); Mean Corp Hgb Conc 33.8 g/dL (32-36); Mean Corpuscular Hgb 32.8 pg (27.0-32.0); Mean Corpuscular Volume 97.2 fL (81-99); Mean Platelet Vol. 11.7 fl (6.2-12.0); Monocyte# 0.54 X10^3/uL; Monocyte% 8.7 % (0-10); NRBC Flagged by Analyzer 0 % (0-5); Neutrophil # 2.99 X10^3/uL (2.7-7.7); Platelet Count 260 K/mm3 (150-450); RBC Distribution Width CV 12.3 % (11.6-14.6); RBC Distribution Width SD 44.2 fl (35.1-43.9); White Blood Count 6.2 K/mm3 (4.4-11.0)
[2024-06-11 13:35] LABS: ALB/GLOB Ratio 1.7 RATIO (0.9-2.4); AST(SGOT) 23 U/L (<=31); Alanine Aminotransfer ALT/SGPT 16 U/L (<=34); Albumin, Serum 4.5 g/dL (3.4-4.8); Alkaline Phosphatase 75 U/L (35-104); Anion Gap 10 (5-15); BUN 21 mg/dL (4-19); BUN/Creat Ratio 22.1 RATIO (10-20); Calcium,Total 9.9 mg/dL (7.6-11.0); Carbon Dioxide 26.3 mmol/L (21.0-32.0); Chloride 104 mmol/L (98-108); Cholesterol 218 mg/dL (<=200); Creatinine, Serum 0.93 mg/dL (0.70-1.20); EST Glomerular Filtration Rate 67 (>60); Globulin 2.6 g/dL (2.2-4.2); Glucose 93 mg/dL (70-99); High Density Lipoprotein 59 mg/dL; Low Density Lipoprotein Calc. 127 mg/dL; Potassium 4.1 mmol/L (3.3-5.1); Protein, Total 7.1 g/dL (5.9-8.4); Sodium Level 140 mmol/L (133-145); Total Bilirubin 0.36 mg/dL (0.00-1.30); Triglycerides 161 mg/dL; Very Low Density Lipoprotein 32 mg/dL (5-40); cholesterol:hdl ratio screen 3.73
== END | disposition home or self-care (01) ==
LOC: BIMLAB 10:41
PROVIDERS: PCP Internal Medicine; Referring Provider Internal Medicine; Visit Provider Internal Medicine
DX: E03.9 Hypothyroidism, unspecified (principal)
CPT/HCPCS: 36415; 80053; 80061; 84443; 85025

== ENCOUNTER → 2024-06-20 | Outpatient (CLI) | payer MEDICARE, SELFPAY ==
--- NOTE | 2024-06-20 08:24 | BD_ITS ---
PROCEDURE: DEXA BONE DENSITY STUDY 06/20/2024 REASON FOR EXAM: POST MENOPAUSAL F, age 69 y/o . Postmenopausal. TECHNIQUE: DEXA scan of sites with data reported below. Scanner utilized: [employer]. [facility]ENCE LINKS: [facility] COMPARISON: DEXA examination dated 11/27/2020 FINDINGS: BMD and T-SCORES Lumbar spine: 0.912 g/cm2, T-score -1.2 Levels: L1 through L4 Change from prior: -6.4%. Left femoral neck: 0.903 g/cm2, T-score 0.5 Left total hip: 0.946 g/cm2, T-score 0 Right femoral neck: 0.779 g/cm2, T-score -0.6 Right total hip: 0.877 g/cm2, T-score -0.5 The World Health Organization has defined the following categories based on bone density: Normal bone density: T-score equal to or greater than -1.0 Osteopenia: T-score between -1.0 and -2.5 Osteoporosis: T-score equal to or less than -2.5 FRAX (or Comparable) Fracture Risk Assessment: 10 Year Probability of Fracture: Major Osteoporotic Fracture: 13% Hip Fracture: 1% (Note: FRAX is not to be reported in setting of normal range bone density, osteoporosis on DEXA, known history of osteoporosis, prior osteoporotic hip or vertebral fracture, or for any patient undergoing pharmacological treatment for bone loss.) The National Osteoporosis Foundation (NOF) recommends pharmacological treatment for patients with a FRAX 10-year risk of 3% or higher for a hip fracture, or 20% or higher for a major osteoporotic fracture, to prevent osteoporosis and reduce fracture risk. The patient does not meet the pharmacological treatment recommendations for prevention of osteoporosis. BD/Dexa Bone Density Study IMPRESSION: OSTEOPENIA. Recommend follow-up as clinically warranted. Reading Location: [id number]
== END | disposition home or self-care (01) ==
LOC: OPBD 08:21
PROVIDERS: PCP Internal Medicine; Referring Provider Internal Medicine; Visit Provider Internal Medicine
DX: Z78.0 Asymptomatic menopausal state (principal)
CPT/HCPCS: 77080

== ENCOUNTER → 2024-12-31 | Outpatient (CLI) | payer MEDICARE, SELFPAY ==
--- NOTE | 2024-12-31 10:30 | BI_ITS ---
EXAM: SCRN MAMM (CAD)W/LYDIA BILAT DATE: 12/31/2024 CLINICAL HISTORY: F, Age 69 y/o , SCREEN FOR BREAST CANCER TECHNIQUE: Procedure Code: [id number] Modality: MG Procedure: SCRN MAMM (CAD)W/LYDIA BILAT COMPARISON: Prior exam(s) were compared FINDINGS: TISSUE DENSITY: The breasts are heterogeneously dense, which may obscure small masses. Bilateral Breast Mammographic Findings: No significant masses, calcifications or other abnormalities are identified. BI/SCRN MAMM (CAD)W/LYDIA BILAT IMPRESSION: No mammographic evidence of malignancy OVERALL FINAL ASSESSMENT BI-RADS 1: NEGATIVE. RECOMMENDATION: Routine annual follow-up in 1 Year Additional Recommendation none A letter with findings and recommendations will be mailed to the patient. Reading Location: [id number]
== END | disposition home or self-care (01) ==
LOC: OPBI 10:26
PROVIDERS: PCP Internal Medicine; Referring Provider Obstetrics & Gynecology; Visit Provider Obstetrics & Gynecology
DX: Z12.31 Encounter for screening mammogram for malignant neoplasm of breast (principal)
CPT/HCPCS: 77063; 77067